=== PATIENT | male | born 1960 | race Caucasian/White ===

== ENCOUNTER → 2020-12-13 11:08 | Outpatient (CLI) | payer BC, SELFPAY ==
--- NOTE | ~2020-12-13 | XR_ITS ---
EXAMINATION: XR lumbar spine min 4V EXAM DATE: 12/13/2020 11:28 INDICATION: M54.42- Lumbago with sciatica, left side x3 months/no injury . TECHNIQUE: Lumber spine frontal, lateral, bilateral oblique projections. Coned down frontal and lat eral L5-S1 lumbar projections for interpretation. There is no prior study for comparison. FINDINGS: Moderate to severe disc disease L3-S1, moderate at L2-3. Small to moderate-sized endplate o steophytes. The vertebral body heights relatively well-maintained. The vertebral bodies are aligned i n the AP dimension. No spondylolysis. Mild lumbar levoscoliosis. Sacrum, sacroiliac joints, sacral ar reynaldo lines are intact. Paraspinal soft tissue is unremarkable. Moderate diffuse lumbar facet arthrop athy. IMPRESSION: 1. Mild lumbar levoscoliosis. 2. Moderate to severe disc disease L3-S1. 3. Moderate facet arthropathy. Reviewed, dictated and finalized at location B.
== END ==
PROVIDERS: PCP Family Medicine; Visit Provider Family Medicine
DX: M54.42 Lumbago with sciatica, left side (principal); M41.86 Other forms of scoliosis, lumbar region; M47.816 Spondylosis without myelopathy or radiculopathy, lumbar region
CPT/HCPCS: 72110

== ENCOUNTER 2020-12-13 12:31 | Outpatient (CLI) | payer BC, SELFPAY ==
--- NOTE | ~2020-12-13 | CT_ITS ---
EXAMINATION: CT abdomen pelvis wo con EXAM DATE: 12/13/2020 12:49 INDICATION: R31.29 - Other microscopic hematuria. Left flank pain. TECHNIQUE: Spiral CT of the abdomen and pelvis was performed without contrast. Axial, coronal and sag ittal images were reviewed. The dose-length product (DLP) for this examination was 1013.15 mGy-cm. The exposure was tailored according to patient size (auto mA exposure control), and iterative reconst ruction (ASIR) was used as additional dose reduction technique. There is no prior study for comparis on. FINDINGS: There is punctate 2 mm left inferior calyceal stone. No ureteral stones or hydronephrosis. The prostate is unremarkable. The bladder is unremarkable. Left adrenal hyperplasia. The liver, spl een, adrenal glands and pancreas are otherwise unremarkable. Gallbladder is unremarkable. No biliar y obstruction. There is no retroperitoneal or pelvic lymphadenopathy. The appendix is normal. There is mild to moderate sigmoid predominant colonic diverticulosis. There is no adjacent inflammatory change to suggest diverticulitis. The stomach and small bowel are unremar kable. There is expected amount of colonic stool. No free intraperitoneal gas. The heart is norm al in size. There are no pericardial or pleural effusions. The lung bases are unremarkable. There are no osteoblastic or osteolytic lesions identified. Moderate lumbar spondylosis. IMPRESSION: 1. Punctate left nephrolithiasis. 2. No acute lumbar findings. 3. Colonic diverticulosis. Reviewed, dictated and finalized at location B.
== END 2020-12-13 12:32 | disposition home or self-care (01) ==
LOC: ANHIMG 12:32
PROVIDERS: PCP Family Medicine; Visit Provider Family Medicine
DX: R31.29 Other microscopic hematuria (principal); M54.42 Lumbago with sciatica, left side; N20.0 Calculus of kidney; K57.90 Diverticulosis of intestine, part unspecified, without perforation or abscess without bleeding
CPT/HCPCS: 74176

== ENCOUNTER → 2022-01-25 11:37 | Outpatient (CLI) | payer BC, SELFPAY ==
--- NOTE | ~2022-01-25 | XR_ITS ---
EXAMINATION: XR hip LT min 3V w AP pelvis, XR lumbar spine min 4V DATE: 01/25/2022 12:14 INDICATION: Lumbago with left-sided sciatica. Left hip pain. TECHNIQUE: 1. Anteroposterior, lateral, left and right oblique and coned-down lateral lumbosacral views of the l umbar spine were obtained. 2. Anteroposterior view of the pelvis and anteroposterior, frog leg and cross-table lateral views of the left hip were obtained. COMPARISON: Lumbar spine radiographs and CT abdomen and pelvis dated 12/13/2020 FINDINGS: Lumbar spine: Alignment is normal. Vertebral body heights are normal. Moderate to severe disc height loss with vacu um phenomena at L3-L4, L4-L5 and L5-S1. Mild disc height loss at T10-T11 through L2-L3 relatively spa ring L1-L2. No pars interarticularis defects. Multilevel mild to moderate lumbar facet osteoarthritis . Pelvis and left hip: Alignment is normal. No fracture. No suspected avascular necrosis. Moderate to severe osteoarthritis at the left hip with severe joint space narrowing at the superior aspect of the joint space with suba rticular cystic change at the superior left acetabulum. Large loose osteochondral body along the ante rosuperior margin of the left femoral head neck. Mild osteoarthritis at the right hip. Bilateral decr eased femoral head/neck offset. Moderate bilateral sacroiliac osteoarthritis with partial ankylosis o f the right sacroiliac joint. Soft tissues are unremarkable. IMPRESSION: 1. Moderate to severe lumbar spondylosis. 2. Moderate to severe left hip and mild right hip osteoarthritis. 3. Moderate bilateral sacral erect osteoarthritis with partial ankylosis on the right. Reviewed, dictated and finalized at location B. IMPRESSION: 1. Moderate to severe lumbar spondylosis. 2. Moderate to severe left hip and mild right hip osteoarthritis. 3. Moderate bilateral sacral erect osteoarthritis with partial ankylosis on the right.
== END ==
PROVIDERS: PCP Family Medicine; Visit Provider Family Medicine
DX: M54.42 Lumbago with sciatica, left side (principal); G89.29 Other chronic pain; M47.896 Other spondylosis, lumbar region; M16.0 Bilateral primary osteoarthritis of hip; M53.3 Sacrococcygeal disorders, not elsewhere classified
CPT/HCPCS: 72110; 73502

== ENCOUNTER → 2022-02-09 13:33 | Outpatient (CLI) | payer BC, SELFPAY ==
--- NOTE | ~2022-02-09 | MR_ITS ---
EXAMINATION: MR lumbar spine wo con DATE: 02/09/2022 14:06 INDICATION: Low back pain. Left-sided lumbar radiculitis. TECHNIQUE: Magnetic resonance imaging (MRI) of the lumbar spine was performed without intravenous con trast. Sequences included sagittal T2-weighted FSE, sagittal T2-weighted FS FSE, sagittal T1-weighted FSE, and axial T2-weighted FSE. COMPARISON: Lumbar spine radiographs 01/25/2022 FINDINGS: There is 6 degrees levocurvature of lumbar spine. There is 3 mm retrolisthesis of L3 on L4 and L5 on S1. There is mild chronic anterior wedging of T11 and T12 vertebral bodies. There is mildly decreased disc height at L2-L3 and severely decreased disc height from L3-L4 through L5-S1 with endp late remodeling. The distal spinal cord signal intensity is normal. The conus medullaris is at T12-L1 . The following disc levels are specifically discussed: L1-L2: The disc does not extend beyond the endplate margin. There is mild bilateral facet joint osteo arthritis. There is no neural foraminal stenosis. There is no central canal stenosis. L2-L3: The disc is bulging and has an annular fissure. There is moderate bilateral facet joint osteoa rthritis. There is mild bilateral neural foraminal stenosis. There is mild central canal stenosis. L3-L4: The disc is bulging and has an annular fissure. There is moderate bilateral facet joint osteoa rthritis. There is moderate bilateral neural foraminal stenosis. There is mild central canal stenosis . L4-L5: The disc is bulging and has an annular fissure. There is moderate bilateral facet joint osteoa rthritis. There is moderate bilateral neural foraminal stenosis. There is mild central canal stenosis . L5-S1: The disc is bulging and has an annular fissure. There is moderate bilateral facet joint osteoa rthritis. There is moderate bilateral neural foraminal stenosis. There is mild central canal stenosis . IMPRESSION: 1. Severe lumbar spondylosis. Reviewed, dictated and finalized at location A.
== END ==
PROVIDERS: PCP Family Medicine; Visit Provider Family Medicine
DX: M47.26 Other spondylosis with radiculopathy, lumbar region (principal)
CPT/HCPCS: 72148

== ENCOUNTER 2022-02-20 07:31 | Outpatient (RCR) | payer BC, SELFPAY ==
--- NOTE | 2022-02-20 07:59 | PTOPEVAL1 ---
Assessment and note entered by [employer]T [employer], PT Evaluation Information Assessment Status Evaluation Diagnosis L hip pain Onset 02/13/22 Subjective Information patient reports he is having pain in the groin of the L hip. he reports he has had an xray of the L hip and reports he has bone spurs and arthritis. he reports he is taking a mm realxor for the pain. he reports he has had no injection. he reports he has increased pain with increased time and activities standing. he reports he always has pain , but reports at times he will do too much and it will be sharp. he reports the pain at rest is a deep and dull pain. he reports he has been dealing with pain and symptoms for atleast 1 year or more. Reported Pain Level Pain Score 7: Self Report Assessment PT Clinical Summary mr. rubalcava presents to skilled PT services for evaluation and treatment of L hip pain. he presents this date with signs and symptoms consistent with L hip OA. his OA is accompanied by L hip weakness, mm tightness, decreased rom, pain , abnormal gait mechanics, and decreased quality of life. he would do well to attend and participate in skilled PT services to improve his objective/funcitonal deficits and progress towards a return to his prior level activity performance/ endurance and improve his quality of life. Plan of Care Interventions Electrical Stimulation,Gait Training,Hot Pack/Cold Pack,Manual Therapy,Neuro Re-education,Patient/ Caregiver Educati,Therapeutic Activities, Therapeutic Exercise PT Services Indicated Yes Treatment Frequency and 2x weekly for 8 visits Duration These treatments will address the objective and functional deficits as defined above. The patient will be advanced safely and appropriately in order for the patient to progress towards his/her prior level of function. Additional exercises will be introduced and as well as a comprehensive home exercise program upon discharge, if needed, ?to ensure carryover of functional gains achieved in the clinic. This treatment plan has been reviewed and agreement upon by the patient.
== END 2022-03-21 10:51 | disposition home or self-care (01) ==
LOC: CHSPT 07:31
PROVIDERS: Visit Provider Nurse Practitioner
DX: M25.552 Pain in left hip (principal); G89.29 Other chronic pain
CPT/HCPCS: 97014; 97110; 97112; 97140; 97161; G0283

== ENCOUNTER 2022-04-23 13:04 | Outpatient (CLI) | payer BC, SELFPAY ==
--- NOTE | ~2022-04-23 | XR_ITS ---
EXAMINATION: XR lg joint inject/asp w image DATE: 04/23/2022 13:49 INDICATION: Chronic left hip pain. TECHNIQUE: A time-out was performed to verify the patient's name, date of , and procedure to b e performed. The procedure including the risks, benefits, and alternatives was discussed with the pat ient. Risks discussed included bleeding and infection. The patient understood the risks and agreed to proceed. The skin overlying the left hip joint was prepped and draped in usual sterile fashion. An esthetic was administered with 1% lidocaine subcutaneously. A 22 G needle was advanced under fluoros copic guidance into the joint. Subsequently, injectate consisting of 5 mL 1% lidocaine and 2 mL 10 m g/mL Kenalog was instilled. The needle was removed and the entry site was cleaned and dressed. Ther e were no immediate complications. Fluoroscopy exposure time was 0.1 minutes. The total number of janel ges was 1. FINDINGS: Real-time fluoroscopy demonstrates the needle in the left hip joint. IMPRESSION: 1. Fluoroscopy guided left hip joint injection of local anesthetic and steroid. Reviewed, dictated and finalized at location A. 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
== END 2022-04-23 13:05 | disposition home or self-care (01) ==
PROVIDERS: PCP Family Medicine; Visit Provider Nurse Practitioner
DX: M25.552 Pain in left hip (principal); G89.29 Other chronic pain
CPT/HCPCS: 20610; 77002; J3301

== ENCOUNTER 2022-11-07 01:35 | Day surgery (SDC) | payer BC, SELFPAY ==
[2022-10-25 15:01] VITALS: BMI 37.6
--- NOTE | 2022-11-06 20:21 | PM.HPGS ---
History of Present Illness History of Present Illness Consent: Risks, benefits, and alternatives have been discussed and questions answered. Patient agrees to proceed with procedure. Chief complaint: neoplasm screening Narrative: Pawel Hogan Jr. is a 62 year old male EGD with possible biopsy or dilatation or cautery. Review of Systems Review of Systems: All systems reviewed & are unremarkable except as noted in HPI and below PMFSH Past Medical History Medical History Actinic keratosis (~2021) left external ear Acute bilateral low back pain with left-sided sciatica (~09/06/20) X-ray on 12/13/2020 reveals mild levoscoliosis, moderate to severe degenerative disc disease from L3-S1 and moderate facet arthropathy throughout with moderate degenerative disc disease at L2-L3. Moderate to severe lumbar spondylosis on x-ray 01/25/2022.MRI of the lumbar spine on 02/09/2022 reveals severe lumbar spondylosis. Adult BMI 40.0-44.9 kg/sq m BMI 45.0-49.9, adult Chronic anxiety Chronic depression Chronic left hip pain (~12/2021) Moderate to severe osteoarthritis of the left hip and mild arthritis of the right hip on x-rays 01/25/2022. Colon cancer screening COVID-19 (02/11/21) tested positive on 02/13/2021 Dizziness Dyspnea on exertion Dysuria Elevated fasting glucose fasting glucose 94 and hemoglobin A1c 5.5 on 06/27/2021. fasting glucose 96 on 01/16/2022. Fasting glucose 95 with hemoglobin A1c 5.5 on 08/15/2022. Elevated ferritin (08/15/22) iron 80 with 25% saturation and ferritin elevated at 439 on 08/15/2022. Elevated liver enzymes AST 18 and ALT 31 on 06/27/2021. Liver enzymes normal on 08/15/2022 with GGT 15, AST 18, ALT 22. Elevated PSA, less than 10 ng/ml (08/15/22) PSA elevated at 4.75 on 08/15/2022. Encounter for prostate cancer screening PSA normal at 3.67 on 4 06/27/2021.PSA elevated at 4.75 on 08/15/2022. Essential (primary) hypertension Fatigue Ganglion cyst of right foot Gastro-esophageal reflux disease without esophagitis Hypertension Low TSH level (08/15/22) TSH slightly low at 0.25 on 08/15/2022. Microscopic hematuria urinalysis normal on 06/27/2021. Urinalysis normal on 08/15/2022. Mixed hyperlipidemia (06/27/21) total cholesterol 165 with triglycerides elevated at 204 and HDL low at 31 with LDL 102 on 06/27/2021. Total cholesterol 133, triglycerides 144, HDL 30, LDL 79 on 01/16/2022. Cholesterol 149, HDL 30, triglycerides 132, LDL 96 on 08/15/2022. Morbid obesity with BMI of 40.0-44.9, adult Obstructive sleep apnea on CPAP Seasonal allergic rhinitis Trigger thumb of left hand Vitamin B12 deficiency (08/15/22) vitamin B12 low at 336 with goal greater than 400 with hemoglobin 15.7 and folic acid 15.5 on 08/15/2022. Surgical History Surgical History History of carpal tunnel release of both wrists Hx of LASIK Family History Family History Other Adopted Social History Social History Smoking status: Never smoker Alcohol intake: never Substance use: never Substance use type: does not use Lack of Transportation: No Lack of Food: Never True Current Housing: I Have Housing Concerned About Future Housing: No Difficulty Paying Gas/Electric Bills: No Difficulty Paying for Meds: No Currently Unemployed: No Education: Master's Degree or Higher Difficulty w/ Childcare or Family Care: No Living arrangements: with family Occupation/Education: occupation 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
[2022-11-07 11:11] VITALS: BP 133/81; PULSE 77; RESP 18; TEMP 36.2; O2SAT 98
[2022-11-07] MEDS: LACTATED RINGERS 1,000 ML 150 ML IV CONT (11:20)
--- NOTE | 2022-11-07 12:36 | WPDANESEPPF ---
Anes - Initial Pre Proc Eval Procedure: Operation Date: 11/07/22 12:30 Proposed Procedures p Screening Colonoscopy - Rogelio Lozano MD Date/Time: 11/07/22 12:36 Surgeon: Rogelio Lozano MD Pre Op Diagnosis: neoplasm screening Patient Data Age: 62 Gender: M Height: 1.7 m Weight: 107.8 kg Last Vital Signs Temp 97.1 F L 11/07/22 11:11 Pulse 77 11/07/22 11:11 Resp 18 11/07/22 11:11 BP 133/81 11/07/22 11:11 Pulse Ox 98 11/07/22 11:11 O2 Del Method Room Air 11/07/22 11:11 Allergies Allergy/AdvReac Type Severity Reaction Status Date / Time No Known Allergies Allergy Verified 11/07/22 11:11 Home Medications Medication Instructions Recorded Confirmed Type calcium polycarbophil 625 mg 1,250 mg PO DAILY 02/24/19 10/25/22 History tablet (FiberCon) lisinopril 40 mg tablet 40 mg PO DAILY #90 tabs 05/31/22 10/25/22 Rx meloxicam 15 mg tablet 15 mg PO DAILY PRN pain #90 tabs 05/31/22 10/25/22 Rx omeprazole 20 mg capsule,delayed 20 mg PO DAILY #90 caps 05/31/22 10/25/22 Rx release cyanocobalamin (vitamin B-12) 1,000 mcg PO DAILY 08/16/22 10/25/22 History 1,000 mcg tablet duloxetine 60 mg capsule,delayed 60 mg PO DAILY #90 caps 09/04/22 10/25/22 Rx release Patient hx anesthesia problems: none Family hx anesthesia problems: none Results Review: All pre-operative results and documents have been reviewed as part of the pre-operative evaluation. FORMERLY [facility], [facility] Past Medical History Medical History Actinic keratosis (~2021) left external ear Acute bilateral low back pain with left-sided sciatica (~09/06/20) X-ray on 12/13/2020 reveals mild levoscoliosis, moderate to severe degenerative disc disease from L3-S1 and moderate facet arthropathy throughout with moderate degenerative disc disease at L2-L3. Moderate to severe lumbar spondylosis on x-ray 01/25/2022.MRI of the lumbar spine on 02/09/2022 reveals severe lumbar spondylosis. Adult BMI 40.0-44.9 kg/sq m BMI 45.0-49.9, adult Chronic anxiety Chronic depression Chronic left hip pain (~12/2021) Moderate to severe osteoarthritis of the left hip and mild arthritis of the right hip on x-rays 01/25/2022. Colon cancer screening COVID-19 (02/11/21) tested positive on 02/13/2021 Dizziness Dyspnea on exertion Dysuria Elevated fasting glucose fasting glucose 94 and hemoglobin A1c 5.5 on 06/27/2021. fasting glucose 96 on 01/16/2022. Fasting glucose 95 with hemoglobin A1c 5.5 on 08/15/2022. Elevated ferritin (08/15/22) iron 80 with 25% saturation and ferritin elevated at 439 on 08/15/2022. Elevated liver enzymes AST 18 and ALT 31 on 06/27/2021. Liver enzymes normal on 08/15/2022 with GGT 15, AST 18, ALT 22. Elevated PSA, less than 10 ng/ml (08/15/22) PSA elevated at 4.75 on 08/15/2022. Encounter for prostate cancer screening PSA normal at 3.67 on 4 06/27/2021.PSA elevated at 4.75 on 08/15/2022. Essential (primary) hypertension Fatigue Ganglion cyst of right foot Gastro-esophageal reflux disease without esophagitis Hypertension Low TSH level (08/15/22) TSH slightly low at 0.25 on 08/15/2022. Microscopic hematuria urinalysis normal on 06/27/2021. Urinalysis normal on 08/15/2022. Mixed hyperlipidemia (06/27/21) total cholesterol 165 with triglycerides elevated at 204 and HDL low at 31 with LDL 102 on 06/27/2021. Total cholesterol 133, triglycerides 144, HDL 30, LDL 79 on 01/16/2022. Cholesterol 149, HDL 30, triglycerides 132, LDL 96 on 08/15/2022. Morbid obesity with BMI of 40.0-44.9, adult Obstructive sleep apnea on CPAP Seasonal allergic rhinitis Trigger thumb of left hand Vitamin B12 deficiency (08/15/22) vitamin B12 low at 336 with goal greater than 400 with hemoglobin 15.7 and folic acid 15.5 on 08/15/2022. Surgical History Surgical History History of carpal tunnel release of both wrists Hx of LASIK Family Histo
[2022-11-07 12:57] VITALS: BP 122/77; PULSE 72; RESP 18; O2SAT 95
[2022-11-07 13:07] VITALS: BP 120/84; PULSE 74; RESP 18; O2SAT 98
[2022-11-07 13:17] VITALS: BP 120/89; PULSE 68; RESP 18; O2SAT 98
== END 2022-11-07 13:30 | disposition home or self-care (01) ==
PROVIDERS: PCP Family Medicine; Visit Provider Internal Medicine Gastroenterology
PROC: 0DJD8ZZ Inspection of Lower Intestinal Tract, Via Natural or Artificial Opening Endoscopic (ICD-10-PCS; CPT 45378; principal; 2022-11-07 12:30)
DX: Z12.11 Encounter for screening for malignant neoplasm of colon (principal); K57.30 Diverticulosis of large intestine without perforation or abscess without bleeding; I10 Essential (primary) hypertension; F41.9 Anxiety disorder, unspecified; F32.A Depression, unspecified; K21.9 Gastro-esophageal reflux disease without esophagitis; E78.2 Mixed hyperlipidemia; G47.33 Obstructive sleep apnea (adult) (pediatric); E66.9 Obesity, unspecified; Z68.37 Body mass index [BMI] 37.0-37.9, adult
CPT/HCPCS: 45378; J2704; J7120

== ENCOUNTER 2023-01-28 13:52 | Outpatient (CLI) | payer BC, SELFPAY ==
--- NOTE | 2023-01-28 14:41 | ECG_ITS ---
Measurements Intervals [place] Rate: 90 P: 31 AL: 191 QRS: 64 QRSD: 98 T: 28 QT: 314 QTc: 384 Interpretive Statements SINUS RHYTHM LOW QRS VOLTAGE IN PRECORDIAL LEADS [QRS DEFLECTION < 1.0 mV IN CHEST LEADS] PATTERN CONSISTENT WITH PULMONARY DISEASE POSSIBLE INFERIOR MYOCARDIAL INFARCTION [30 ms Q WAVE IN II/aVF], OF INDETERMINATE AGE ABNORMAL ECG NO PREVIOUS ECG AVAILABLE FOR COMPARISON Electronically Signed On 01-28-2023 17:13:29 CDT by Obed Grace M.D.
[2023-01-28 15:15] LABS: Anion Gap 12 mmol/L (8-16); Blood Urea Nitrogen 14 mg/dL (9-20); Calcium 9.2 mg/dL (8.4-10.2); Carbon Dioxide 25 mmol/L (22-30); Chloride 95 mmol/L (98-107); Estimated Glomerular Filt Rate > 60; Glucose 86 mg/dL (65-110); Potassium 4.2 mmol/L (3.4-5.0); Sodium 132 mmol/L (137-145)
[2023-01-28 15:19] LABS: Basophils Percent Auto 0.6 % (0.2-1.2); Eosinophils Absolute Auto 0.3 K/mm3 (0-0.3); Eosinophils Percent Auto 4.7 % (0-4.4); Hematocrit 50.1 % (42.0-52.0); Hemoglobin 16.7 g/dL (14.0-18.0); Immature Granulocyte Absolute 0.02 K/mm3 (0.00-0.031); Immature Granulocyte Percent A 0.3 % (0-0.5); Lymphocytes Percent Auto 5.6 % (18.3-44.2); Mean Corpuscular HGB Conc 33.3 g/dl (32-36); Mean Corpuscular Hemoglobin 29.5 pg (26-34); Mean Corpuscular Volume 88.5 fl (80-100); Mean Platelet Volume 9.7 fl (7.4-10.4); Monocytes Absolute Auto 0.9 K/mm3 (0.1-0.6); Monocytes Percent Auto 12.5 % (2.6-8.5); Neutrophils Absolute Auto 5.5 K/mm3 (1.3-6.7); Neutrophils Percent Auto 76.3 % (45.5-73.1); Platelet Count Result 216 k/mm3 (150-375); Red Blood Count 5.66 M/mm3 (4.6-6.20); Red Cell Distribution Width 12.8 % (11.5-14.5); White Blood Count 7.2 K/mm3 (4.5-10.0)
[2023-01-28 17:10] LABS: Urine Cotinine NEGATIVE
[2023-01-28 17:53] LABS: Hemoglobin A1C 5.3 % (<5.7)
== END 2023-01-28 13:53 | disposition home or self-care (01) ==
LOC: ANHSURGERY 13:55
PROVIDERS: PCP Family Medicine; Visit Provider Orthopaedic Surgery
DX: M16.12 Unilateral primary osteoarthritis, left hip (principal); Z01.818 Encounter for other preprocedural examination
CPT/HCPCS: 80048; 80307; 82040; 83036; 85025; 87081; 93005

== ENCOUNTER 2023-01-29 12:00 | Emergency (ER) | payer BC, SELFPAY ==
--- NOTE | ~2023-01-29 | CT_ITS ---
EXAMINATION: CT abdomen pelvis wo con DATE: 01/29/2023 13:35 INDICATION: Left flank pain TECHNIQUE: Computed tomography (CT) of the abdomen and pelvis was performed without intravenous contr ast. Automated exposure control and iterative reconstruction technique were employed. The dose-length product was 1603.87 mGy-cm. COMPARISON: 12/13/20 FINDINGS: Lung bases are clear. Heart size is normal. Atherosclerotic coronary artery calcific location. No per icardial or pleural effusion. Liver, gallbladder, spleen, pancreas, bilateral adrenal glands are norm al. 3 mm nonobstructing stone at a lower pole calyx of the left kidney. No other urolithiasis in eith er kidney or along the course of the normal ureters. No hydroureteronephrosis. Mild scattered colonic diverticulosis without adjacent comparison to suggest diverticulitis. Small bowel and appendix are n ormal. Bladder is normal. Small bilateral fat-containing inguinal hernias. No free intraperitoneal ga s or fluid. No pathologically enlarged abdominal or pelvic lymphadenopathy. Moderate lower thoracic a nd moderate to severe lumbar spondylosis. IMPRESSION: 1. 3 mm nonobstructing left renal stone. Reviewed, dictated and finalized at location A.
[2023-01-29 12:07] VITALS: BP 125/95; PULSE 92; RESP 14; TEMP 36.4; O2SAT 98
--- NOTE | 2023-01-29 12:52 | ED.MALEGU ---
HPI - Male Genitourinary General Chief complaint: Urogenital-Male Stated complaint: Trouble voiding Time Seen by Provider: 01/29/23 12:40 Source: patient and family Mode of arrival: ambulatory Limitations: no limitations History of Present Illness HPI Narrative: 62 years old white male complaining of urine frequency, burning send urination, 500 for the last 4 to 6 months, got worse over the last few days, was seen by his family physician 5 days ago and was started on Bactrim without any improvement, urine analysis showed no infection at that time. Currently his main complaint is nausea. Patient report lethargy and tiredness and general body aches, tested negative for COVID at home. History of hypertension, currently on meloxicam for hip pain. Related Data Home Medications Medication Instructions Recorded Confirmed calcium polycarbophil 625 mg 1,250 mg PO DAILY 02/24/19 01/28/23 tablet (FiberCon) cyanocobalamin (vitamin B-12) 1,000 mcg PO DAILY 08/16/22 01/28/23 1,000 mcg tablet zinc 10 mg tablet 10 mg PO DAILY 01/28/23 01/28/23 Allergies Allergy/AdvReac Type Severity Reaction Status Date / Time No Known Allergies Allergy Verified 01/29/23 12:11 Review of Systems Review of Systems: All systems reviewed & are unremarkable except as noted in HPI and below PMFSH Past Medical History Medical History Actinic keratosis (~2021) left external ear Acute bilateral low back pain with left-sided sciatica (~09/06/20) X-ray on 12/13/2020 reveals mild levoscoliosis, moderate to severe degenerative disc disease from L3-S1 and moderate facet arthropathy throughout with moderate degenerative disc disease at L2-L3. Moderate to severe lumbar spondylosis on x-ray 01/25/2022.MRI of the lumbar spine on 02/09/2022 reveals severe lumbar spondylosis. Adult BMI 40.0-44.9 kg/sq m BMI 37.0-37.9, adult BMI 45.0-49.9, adult Chronic anxiety Chronic depression Chronic left hip pain (~12/2021) Moderate to severe osteoarthritis of the left hip and mild arthritis of the right hip on x-rays 01/25/2022. Colon cancer screening Normal colonoscopy 11/07/2022 with diverticulosis with recheck in 10 years. COVID-19 (02/11/21) tested positive on 02/13/2021 Dizziness Dyspnea on exertion Dysuria Elevated fasting glucose fasting glucose 94 and hemoglobin A1c 5.5 on 06/27/2021. fasting glucose 96 on 01/16/2022. Fasting glucose 95 with hemoglobin A1c 5.5 on 08/15/2022. Elevated ferritin (08/15/22) iron 80 with 25% saturation and ferritin elevated at 439 on 08/15/2022. Elevated liver enzymes AST 18 and ALT 31 on 06/27/2021. Liver enzymes normal on 08/15/2022 with GGT 15, AST 18, ALT 22. Elevated PSA, less than 10 ng/ml (08/15/22) PSA elevated at 4.75 on 08/15/2022. Encounter for prostate cancer screening PSA normal at 3.67 on 4 06/27/2021.PSA elevated at 4.75 on 08/15/2022. Essential (primary) hypertension Fatigue Ganglion cyst of right foot Gastro-esophageal reflux disease without esophagitis Hypertension Low TSH level (08/15/22) TSH slightly low at 0.25 on 08/15/2022. Microscopic hematuria urinalysis normal on 06/27/2021. Urinalysis normal on 08/15/2022. Urinalysis is normal on 01/24/2023. Mixed hyperlipidemia (06/27/21) total cholesterol 165 with triglycerides elevated at 204 and HDL low at 31 with LDL 102 on 06/27/2021. Total cholesterol 133, triglycerides 144, HDL 30, LDL 79 on 01/16/2022. Cholesterol 149, HDL 30, triglycerides 132, LDL 96 on 08/15/2022. Morbid obesity with BMI of 40.0-44.9, adult Obesity (BMI 30-39.9) Obstructive sleep apnea on CPAP Pre-operative clearance EKG 01/28/2023 with sinus rhythm with Q-wave AVF with possible inferior MS but unchanged from EKG On 05/14/2015. Primary osteoarthritis of left hip Seasonal allergic rhinitis Trigger thumb of left hand UTI (urinary tract infection) Urinalysis and urine culture were completely normal 01/24/2023. Vitamin B12 defici
[2023-01-29 13:10] LABS: Basophils Percent Auto 0.3 % (0.2-1.2); Eosinophils Absolute Auto 0.3 K/mm3 (0-0.3); Eosinophils Percent Auto 7.7 % (0-4.4); Hematocrit 45.6 % (42.0-52.0); Hemoglobin 15.4 g/dL (14.0-18.0); Immature Granulocyte Absolute 0.02 K/mm3 (0.00-0.031); Immature Granulocyte Percent A 0.5 % (0-0.5); Lymphocytes Absolute Auto 0.38 K/mm3 (0.9-3.2); Lymphocytes Percent Auto 9.8 % (18.3-44.2); Mean Corpuscular HGB Conc 33.8 g/dl (32-36); Mean Corpuscular Hemoglobin 29.4 pg (26-34); Mean Corpuscular Volume 87.2 fl (80-100); Mean Platelet Volume 9.3 fl (7.4-10.4); Monocytes Absolute Auto 0.7 K/mm3 (0.1-0.6); Monocytes Percent Auto 18.6 % (2.6-8.5); Neutrophils Absolute Auto 2.5 K/mm3 (1.3-6.7); Neutrophils Percent Auto 63.1 % (45.5-73.1); Platelet Count Result 170 k/mm3 (150-375); Red Blood Count 5.23 M/mm3 (4.6-6.20); Red Cell Distribution Width 12.7 % (11.5-14.5); White Blood Count 3.9 K/mm3 (4.5-10.0)
[2023-01-29 13:23] LABS: Alanine Aminotransferase 23 U/L (6-50); Albumin Level 4.5 g/dL (3.5-5.1); Alkaline Phosphatase 77 U/L (38-126); Anion Gap 8 mmol/L (8-16); Aspartate Amino Transferase 22 U/L (17-59); Bilirubin,Total 0.4 mg/dL (0.2-1.3); Blood Urea Nitrogen 12 mg/dL (9-20); Carbon Dioxide 26 mmol/L (22-30); Chloride 96 mmol/L (98-107); Estimated CRCL calculation 99 ml/min; Estimated Glomerular Filt Rate > 60; Glucose 91 mg/dL (65-110); Potassium 4.4 mmol/L (3.4-5.0); Sodium 130 mmol/L (137-145)
[2023-01-29 13:27] LABS: Appearance Urine Clear (Clear); Bilirubin Urine Negative (Negative); Color Urine Yellow (Yellow); Glucose Urine UA Negative (Negative); Ketones Urine Negative (Negative); Leukocyte Esterase Ur Negative LEU/UL (Negative); Nitrate Urine Negative (Negative); Protein Urine Negative (Negative); Urobilinogen Urine 0.2 mg/dL (<2.0)
[2023-01-29 14:25] LABS: Influenza A QL RT-PCR Negative (Negative); Influenza B QL RT-PCR Negative (Negative); RSV RNA, RT-PCR Negative (Negative); SARS-CoV-2 RNA PCR Negative (Negative)
[2023-01-29 14:29] LABS: Add Urine Microscopic? YES
[2023-01-29 14:55] VITALS: BP 178/89; PULSE 89; RESP 18; TEMP 37.7; O2SAT 100
== END 2023-01-29 15:12 | disposition home or self-care (01) ==
PROVIDERS: Emergency Medicine; Emergency Provider Emergency Medicine; PCP Family Medicine
DX: R30.0 Dysuria (principal); Z20.822 Contact with and (suspected) exposure to COVID-19; I10 Essential (primary) hypertension; E78.2 Mixed hyperlipidemia; E53.8 Deficiency of other specified B group vitamins; E66.01 Morbid (severe) obesity due to excess calories; Z68.37 Body mass index [BMI] 37.0-37.9, adult; M16.0 Bilateral primary osteoarthritis of hip; G47.33 Obstructive sleep apnea (adult) (pediatric); K21.9 Gastro-esophageal reflux disease without esophagitis; Z86.16 Personal history of COVID-19; Z87.440 Personal history of urinary (tract) infections; N20.0 Calculus of kidney
CPT/HCPCS: 36415; 74176; 80053; 81001; 85025; 87086; 87637; 99284

== ENCOUNTER 2023-02-20 03:23 | Day surgery (SDC) | payer BC, SELFPAY ==
[2023-01-28 14:00] VITALS: BMI 37.7
--- NOTE | 2023-01-28 14:23 | PC.NURSE ---
Report to the Outpatient Waiting Room, entrance under the green pavilion located off [facility], at time _0600 on date _02/20/23 . Planned Procedure Time: __0730 . Time changes happen often and if your time is changed the preop area will call you the afternoon before. - You and your visitor will be asked to self-screen and do not enter if you have any COVID symptoms. - A mask is optional within the hospital at this time. Patients may have clear liquids (water, carbonated beverages, clear teas, apple juice) until 3 hours prior to surgery with a maximum of 20 ounces. - No food from midnight until time of surgery - Infants may have breast milk until 4 hours before surgery, infant formula 6 hours prior to surgery. - Children will be allowed to drink immediately following surgery. If applicable, please bring a bottle or sippy cup to assist with drinking. Juice, water, soda, and popsicles are readily available. For infants on formula, please bring formula the day of surgery. Pacifiers are allowed. Take the following medications with a SIP of water the morning of surgery: ____DULOXETINE DO NOT STOP ANY OF YOUR OTHER PRESCRIPTION MEDICATIONS PRIOR TO SURGERY ?EXCEPT THE FOLLOWING Medications to discontinue per physician __PT STATES_MELOXICAM HOLD 7 DAYS PRE OP PER DR BURGESS.LAST DOSE 02/12/23 AND ALL VITAMINS AND SUPPLEMENTS 7 DAYS PRE OP Please no make-up, nail egyptian, hairspray, perfume, deodorant, or body powder the day of surgery. No jewelry (including any body piercings) or valuables the day of surgery, leave them at home. Please take a shower or bath the night before, or the morning of, surgery with an antibacterial soap. Wear comfortable, loose fitting clothing. Children are encouraged to wear pajamas. - Jewelry must be removed prior to entering the operating room. Rings and piercings that are not removed may be cut off. - The hospital will not accept responsibility for valuables. - Please leave all valuables, including medications, at home the day of surgery. If you are going home after surgery, a licensed driver starting gate must drive you home. - NO public transportation without another adult if you receive anesthesia. - We recommend that an adult stay with you for 24 hours following discharge. - We also recommend that you do not drive, make important decision, drink alcoholic beverages, or take any drugs that were not prescribed by your health care provider for at least 24 hours after your discharge time. For Pediatric surgeries, we recommend two adults accompany the child home. Follow any additional instructions given to you from your surgeon. If you or anyone in your household have experienced Covid symptoms in the past week, please notify your surgeon or the nurse liaison at the phone number below for possible testing. VERBAL AND WRITTEN instructions given to __PATIENT AND GEOFFREY and asked if any additional questions and then verbalized understanding. Patient advised to call surgeon office or pre surgery nurse liaison [phone] if any additional questions.
[2023-01-28 14:43] VITALS: BP 121/69; PULSE 92; RESP 18; TEMP 37; O2SAT 99
--- NOTE | 2023-02-15 07:54 | PM.IMHP ---
H&P: [facility] History of Present Illness Date/Time: 02/15/23 07:54 Chief Complaint: DJD left hip Narrative: 62-year-old male patient of Dr. Mcfarland who presents today for a left anterior total hip arthroplasty. Patient has been having pain in the hip for over a year and half. He has been taking meloxicam 15 mg daily without improvement his symptoms. Patient has advanced osteoarthritis the left hip. He is having pain on a daily basis which is limiting his daily activities. At this point he would like to proceed with total hip arthroplasty rather than continue nonsurgical treatment Review of Systems Review of Systems: All systems reviewed & are unremarkable except as noted in HPI and below PMFSH Past Medical History Medical History (Updated 02/15/23 @ 07:58 by ANNY Alcantar) Actinic keratosis (~2021) left external ear Acute bilateral low back pain with left-sided sciatica (~09/06/20) X-ray on 12/13/2020 reveals mild levoscoliosis, moderate to severe degenerative disc disease from L3-S1 and moderate facet arthropathy throughout with moderate degenerative disc disease at L2-L3. Moderate to severe lumbar spondylosis on x-ray 01/25/2022.MRI of the lumbar spine on 02/09/2022 reveals severe lumbar spondylosis. Adult BMI 40.0-44.9 kg/sq m BMI 37.0-37.9, adult BMI 45.0-49.9, adult BPH without obstruction/lower urinary tract symptoms Chronic anxiety Chronic depression Chronic left hip pain (~12/2021) Moderate to severe osteoarthritis of the left hip and mild arthritis of the right hip on x-rays 01/25/2022. Colon cancer screening Normal colonoscopy 11/07/2022 with diverticulosis with recheck in 10 years. COVID-19 (02/11/21) tested positive on 02/13/2021 Dizziness Dyspnea on exertion Dysuria Elevated fasting glucose fasting glucose 94 and hemoglobin A1c 5.5 on 06/27/2021. fasting glucose 96 on 01/16/2022. Fasting glucose 95 with hemoglobin A1c 5.5 on 08/15/2022. Elevated ferritin (08/15/22) iron 80 with 25% saturation and ferritin elevated at 439 on 08/15/2022. Iron 79 with 25% saturation and ferritin elevated at 563 on 02/05/2023. Elevated liver enzymes AST 18 and ALT 31 on 06/27/2021. Liver enzymes normal on 08/15/2022 with GGT 15, AST 18, ALT 22. Elevated PSA, less than 10 ng/ml (08/15/22) PSA elevated at 4.75 on 08/15/2022. PSA elevated at 5.0 with 12% free PSA on 02/05/2023. Encounter for prostate cancer screening PSA normal at 3.67 on 4 06/27/2021.PSA elevated at 4.75 on 08/15/2022. Essential (primary) hypertension Fatigue Ganglion cyst of right foot Gastro-esophageal reflux disease without esophagitis Hypertension Low TSH level (08/15/22) TSH slightly low at 0.25 on 08/15/2022. TSH normal at 0.62 with free T4 1.1 and T3 total at 160. Microscopic hematuria urinalysis normal on 06/27/2021. Urinalysis normal on 08/15/2022. Urinalysis is normal on 01/24/2023. Mixed hyperlipidemia (06/27/21) total cholesterol 165 with triglycerides elevated at 204 and HDL low at 31 with LDL 102 on 06/27/2021. Total cholesterol 133, triglycerides 144, HDL 30, LDL 79 on 01/16/2022. Cholesterol 149, HDL 30, triglycerides 132, LDL 96 on 08/15/2022. Morbid obesity with BMI of 40.0-44.9, adult Obesity (BMI 30-39.9) Obstructive sleep apnea on CPAP Pre-operative clearance EKG 01/28/2023 with sinus rhythm with Q-wave AVF with possible inferior DC but unchanged from EKG On 05/14/2015. Primary osteoarthritis of left hip Seasonal allergic rhinitis Trigger thumb of left hand UTI (urinary tract infection) Urinalysis and urine culture were completely normal 01/24/2023. Vitamin B12 deficiency (08/15/22) vitamin B12 low at 336 with goal greater than 400 with hemoglobin 15.7 and folic acid 15.5 on 08/15/2022. level normal at 1056 on 02/05/2023. Surgical History Surgical History History of carpal tunnel release of both wrists Hx of LASIK Family History Family History (Reviewed 01/29/23 @
[2023-02-20] VITALS (15 sets, daily range): BP systolic 119–166; BP diastolic 70–97; PULSE 79–91; RESP 18–20; TEMP 36–37.3; O2SAT 94–100
--- NOTE | ~2023-02-20 | XR_ITS ---
EXAMINATION: XR surgery orthopedic DATE: 02/20/2023 12:18 INDICATION: Intraoperative evaluation during left total hip arthroplasty TECHNIQUE: Single fluoroscopic image of the left hip was obtained during orthopedic procedure perform ed by Dr. Santana. Radiologist was not present for the procedure or imaging. The amount of fluoroscop y time used during this procedure was 0.8 minutes. COMPARISON: Left hip radiographs dated 01/25/2022 FINDINGS: Intraoperative image during a left total hip arthroplasty demonstrate placement of a noncemented left total hip arthroplasty in near-anatomic alignment on the single image provided. The acetabula compon ent is affixed with at least a single screw. No fractures in the visualized bones. IMPRESSION: 1. Expected appearance during left total hip arthroplasty. Reviewed, dictated and finalized at location A. DEVELOPER
--- NOTE | ~2023-02-20 | XR_ITS ---
EXAMINATION: XR hip LT 1V w AP pelvis DATE: 02/20/2023 12:18 INDICATION: Postoperative evaluation following left total hip arthroplasty TECHNIQUE: Anteroposterior and crosstable lateral views of the left hip were obtained. COMPARISON: Left hip radiographs dated 01/25/2022 FINDINGS: Interval placement of a noncemented left total hip arthroplasty which appears well seated in near mani tomic alignment.Acetabular component is affixed with a single screw. Surgical drain and minimal expec sadi soft tissue gas in the postoperative bed. No fractures identified. IMPRESSION: 1. Left total hip arthroplasty, negative for postoperative purposes. Reviewed, dictated and finalized at location A. RTAKER HELPER
[2023-02-20] MEDS: TRANEXAMIC ACID 1,000MG/ISO100 1,000 MG/100 ML BAG 200 MG IVPB (06:52)
[2023-02-20] MEDS: LACTATED RINGERS 1,000 ML 30 ML IV CONT ×2 (06:52→12:02)
[2023-02-20] MEDS: ACETAMINOPHEN 500 MG TABLET 1000 MG PO ×3 (06:53→20:52)
--- NOTE | 2023-02-20 07:08 | WPDHPUPDATE1 ---
History and Physical Update Update Date/Time: 02/20/23 07:08 History and Physical has been reviewed, including an updated exam of the patient. There are NO changes in the patient's condition. Risks, benefits, and alternatives have been discussed and questions answered. Patient agrees to proceed with procedure.
--- NOTE | 2023-02-20 07:17 | WPDANESEPPF ---
Anes - Initial Pre Proc Eval Procedure: Operation Date: 02/20/23 07:30 Proposed Procedures p Left Total Hip Arthroplasty, Anterior Approach - Rob Santana MD Date/Time: 02/20/23 07:17 Surgeon: Rob Santana MD Pre Op Diagnosis: osteoarthrtis Left hip Patient Data Age: 62 Gender: M Height: 1.7 m Weight: 109.4 kg Last Vital Signs Temp 97.0 F L 02/20/23 06:27 Pulse 81 02/20/23 06:27 Resp 18 02/20/23 06:27 BP 119/79 02/20/23 06:27 Pulse Ox 96 02/20/23 06:27 O2 Del Method Room Air 02/20/23 06:27 Allergies Allergy/AdvReac Type Severity Reaction Status Date / Time No Known Allergies Allergy Verified 02/20/23 06:36 Home Medications Medication Instructions Recorded Confirmed Type calcium polycarbophil 625 mg 1,250 mg PO DAILY 02/24/19 02/20/23 History tablet (FiberCon) lisinopril 40 mg tablet 40 mg PO DAILY #90 tabs 05/31/22 02/20/23 Rx meloxicam 15 mg tablet 15 mg PO DAILY PRN pain #90 tabs 05/31/22 02/20/23 Rx omeprazole 20 mg capsule,delayed 20 mg PO DAILY #90 caps 05/31/22 02/20/23 Rx release cyanocobalamin (vitamin B-12) 1,000 mcg PO DAILY 08/16/22 02/20/23 History 1,000 mcg tablet duloxetine 60 mg capsule,delayed 60 mg PO DAILY #90 caps 09/04/22 02/20/23 Rx release zinc 10 mg tablet 10 mg PO DAILY 01/28/23 02/20/23 History doxycycline hyclate 100 mg capsule 100 mg PO BID #20 caps 01/29/23 02/20/23 Rx tamsulosin 0.4 mg capsule (Flomax) 0.4 mg PO DAILY #90 caps 02/14/23 02/20/23 Rx Patient hx anesthesia problems: none Family hx anesthesia problems: none Results Review: All pre-operative results and documents have been reviewed as part of the pre-operative evaluation. [facility] Past Medical History Medical History (Updated 02/15/23 @ 07:58 by ANNY Alcantar) Actinic keratosis (~2021) left external ear Acute bilateral low back pain with left-sided sciatica (~09/06/20) X-ray on 12/13/2020 reveals mild levoscoliosis, moderate to severe degenerative disc disease from L3-S1 and moderate facet arthropathy throughout with moderate degenerative disc disease at L2-L3. Moderate to severe lumbar spondylosis on x-ray 01/25/2022.MRI of the lumbar spine on 02/09/2022 reveals severe lumbar spondylosis. Adult BMI 40.0-44.9 kg/sq m BMI 37.0-37.9, adult BMI 45.0-49.9, adult BPH without obstruction/lower urinary tract symptoms Chronic anxiety Chronic depression Chronic left hip pain (~12/2021) Moderate to severe osteoarthritis of the left hip and mild arthritis of the right hip on x-rays 01/25/2022. Colon cancer screening Normal colonoscopy 11/07/2022 with diverticulosis with recheck in 10 years. COVID-19 (02/11/21) tested positive on 02/13/2021 Dizziness Dyspnea on exertion Dysuria Elevated fasting glucose fasting glucose 94 and hemoglobin A1c 5.5 on 06/27/2021. fasting glucose 96 on 01/16/2022. Fasting glucose 95 with hemoglobin A1c 5.5 on 08/15/2022. Elevated ferritin (08/15/22) iron 80 with 25% saturation and ferritin elevated at 439 on 08/15/2022. Iron 79 with 25% saturation and ferritin elevated at 563 on 02/05/2023. Elevated liver enzymes AST 18 and ALT 31 on 06/27/2021. Liver enzymes normal on 08/15/2022 with GGT 15, AST 18, ALT 22. Elevated PSA, less than 10 ng/ml (08/15/22) PSA elevated at 4.75 on 08/15/2022. PSA elevated at 5.0 with 12% free PSA on 02/05/2023. Encounter for prostate cancer screening PSA normal at 3.67 on 4 06/27/2021.PSA elevated at 4.75 on 08/15/2022. Essential (primary) hypertension Fatigue Ganglion cyst of right foot Gastro-esophageal reflux disease without esophagitis Hypertension Low TSH level (08/15/22) TSH slightly low at 0.25 on 08/15/2022. TSH normal at 0.62 with free T4 1.1 and T3 total at 160. Microscopic hematuria urinalysis normal on 06/27/2021. Urinalysis normal on 08/15/2022. Urinalysis is normal on 01/24/2023. Mixed hyperlipidemia (06/27/21) total cholesterol 165 with triglycerides elevated at 204 and HDL low a
[2023-02-20] MEDS: ceFAZolin 2 GM/D5W 50 ML 2 GM/50 ML BAG IVPB (07:30)
[2023-02-20] MEDS: ceFAZolin SODIUM 1 GM VIAL 3 GM (08:21)
[2023-02-20] MEDS: ceFAZolin SODIUM 1 GM VIAL 2 GM IV PUSH (11:22)
[2023-02-20] MEDS: TRANEXAMIC ACID 1,000 MG/10 ML AMPUL 1000 MG IV PUSH (11:22)
--- NOTE | 2023-02-20 12:13 | PM.OP ---
Procedure Note - Brief Procedure Note - Brief Date of procedure: 02/20/23 osteoarthrtis Left hip Procedure performed: Left anterior total hip arthroplasty Surgeon: ANNY Alcantar Findings: 63-year-old male who underwent left anterior total hip arthroplasty on 02/14. I was involved in the procedure including positioning the patient on the OR table and 1st assisting through the to surgery. Total time spent was for have others
[2023-02-20] MEDS: HYDROmorphone HCL INJ (*CRX) 1 MG/ML SYR 0.5 MG IV PUSH ×2 (12:25→12:40)
--- NOTE | 2023-02-20 12:33 | W.PM.PROC2 ---
Procedure Note - Detailed Date of Procedure 02/20/23 Pre-op Diagnosis osteoarthrtis Left hip Post-op Diagnosis Same Procedure Performed Direct anterior approach left total hip arthroplasty, obesity, BMI 39. 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 He received 2 g of Ancef weight based vancomycin 1 g of tranexamic acid preoperatively. Padding was applied the feet boots applied patient transferred to the [facility] [place] table left hip prepped draped usual fashion. Because of his obesity BMI 39 this added significant extra difficulty to the procedure adding at least 1 hour of operating time. A 10 cm longitudinal incision was made starting 2 cm lateral to the ASIS. Dissection was carried down to the fascia over the tensor fascia jahaira which was longitudinally incised elevated off the anterior 50% of the TFL muscle. Interval between TFL and rectus femoris developed. Crossing branches of the ascending lateral femoral circumflex vessels were ligated with suture divided. Retractor placed anterior to the hip capsule the hip abducted and internally rotated and the gluteus minimus elevated off the lateral capsule. The gluteus minimus tendon did have some articular side partial-thickness tearing from the greater trochanter but was attached distally. Inverted T capsulotomy was performed and femoral neck osteotomy made according to preoperative templating. The femoral head was removed. It measured 47 mm diameter had severe eburnation throughout. The acetabulum was exposed. There were 2 fractured ossicles of superolateral acetabular rim that were ununited ossicles and were removed. Residual labrum was excised. The leg was externally rotated extended and the interval between conjoined tendon and piriformis incised allowing the piriformis to flipped the conjoined tendon to recess. With the leg back horizontal position traction external rotation acetabulum was prepared. We medialized with a 42 Reamer and reamed up to 49 mm which gave circumferential reaming and upsizing further would tend to compromise the the anterior posterior dumont at the equator. We lightly reamed with a 50 mm Reamer and a 50 trial was snug and seated fully. We impacted the size 50 pinnacle shell at 40? of abduction and anteversion such as the anterior rim was 2 mm under the anterior rim of the acetabulum and a posterior rim the shell was about 2 mm proud of the posterior rim. Excellent Press-Fit was achieved a single screw placed in the ilium for additional fixation and the 32 inner diameter liner placed without difficulty. The femur was externally rotated and extended. Exposure was a little bit more difficult because of his short neck and I found that not using the table hook actually gave us a little bit better exposure without tenting the tensor posterolaterally and this gave us adequate access to the proximal femur. Bone quality was also excellent and a bur was necessary to penetrate through the cancellous bone at the level of the neck cut and to remove some of the bone at the saddle which was quite dense. We broached up to a size 6 and took an intraoperative x-ray with the 1.5 head standard offset neck. This gave us equal leg lengths. I could see that we should be able to upsize and we did have some torsional wiggle on the 6 and we were able to broach up to a size 8 and we countersunk this 2 mm and this had complete torsional stability. The hip was reduced and we trialed again with a 1.5 neck. I felt we were about 2 mm long and the 5 mm was too tight and I felt the 5 mm head was more appropriate to restore the appropriate offset. We countersunk the broach another 4 mm and trialed with the 5 and had appropriate soft tissue tension and Shuck and equal leg lengths radiographically. The calcar was planed and we impacted the size 8 Actis stem which was tight and seated
[2023-02-20] MEDS: fentaNYL CITRATE INJ (*CRX) 100 MCG/2 ML VIAL 25 MCG IV PUSH ×5 (12:46→13:37)
[2023-02-20] MEDS: KETOROLAC 15 MG/ML VIAL (*BKC) IV PUSH ×2 (12:57→18:19)
[2023-02-20] MEDS: LACTATED RINGERS 1,000 ML 100 ML IV CONT (13:20)
--- NOTE | 2023-02-20 13:54 | ADMGEN ---
This patient, Pawel Hogan Jr., was admitted to 3 Med Surg Room 309-01. Patient/family oriented to hospital policies and general routines including ID bracelet, bed and alarms, visiting hours, pain management, procedures, bathroom and other care routines, personal items, smoking policy, room service/diet, and visiting hours. Information on how to activate the Rapid Response Team has been discussed. Patient/Family are encouraged to report perceived risks to care and to ask questions if they do not understand what they are told or what they should do.
[2023-02-20] MEDS: oxyCODONE HCL (*CRX) 5 MG TAB IR PO ×3 (14:08→20:53)
[2023-02-20] MEDS: ONDANSETRON INJ 4 MG/2 ML VIAL IV PUSH (14:08)
--- NOTE | 2023-02-20 15:20 | PM.IMCN ---
Assessment and Plan Assessment and plan (1) S/P total left hip arthroplasty: Code(s): Z96.642 - Presence of left artificial hip joint Status: Acute (2) Obstructive sleep apnea on CPAP: Code(s): G47.33 - Obstructive sleep apnea (adult) (pediatric); Z99.89 - Dependence on other enabling machines and devices Status: Acute (3) Vitamin B12 deficiency: Onset Date: 08/15/22 Code(s): E53.8 - Deficiency of other specified B group vitamins Status: Acute (4) Chronic depression: Code(s): F32.9 - Major depressive disorder, single episode, unspecified Status: Acute (5) Essential (primary) hypertension: Code(s): I10 - Essential (primary) hypertension Status: Acute (6) Gastro-esophageal reflux disease without esophagitis: Code(s): K21.9 - Gastro-esophageal reflux disease without esophagitis Status: Acute Plan 1. S/P total left hip arthroplasty management by ortho team Ambulate with assistance and up to chair cardiac monitoring Q4H closed drain in place - management BID hip precautions in place use IS neurovasc checks - see order for intervals SCDs resume diet: regular pain and nausea medication PRN monitor labs in AM - CBC and CMP bowel regimen prophylactic atb meloxicam held, resume as appropriate 2. CLAIRE on CPAP continue home BiPAP 3. Chronic depression continue her duloxetine to good mood 4. Hypertension continue lisinopril monitor BP/vitals 5. GERD continue home omeprazole (subbed to pantoprazole) Home Meds/Chronic Conditions - BPH: continue tamsulosin - supplements: continue zinc, B12, fibercon Diet: regular GI Prophylaxis: Continue omeprazole DVT Prophylaxis: SCDs, restart Eliquis tomorrow (02/21) Lines: pIV Code Status: Full Code HPI Date of Consult Consult date: 02/20/23 Requesting Physician: Rob Santana MD Primary Care Provider: Adrien Mcfarland MD Consult Narrative Reason for consult: Medical Managment Narrative: Pawel Hogan Jr. is a 62 year old male here for L anterior total arthroplasty (02/20/23). Patient reports chronic left hip pain for the last year and a half. Initially managed with meloxicam. However pain began limiting his ADLs: Unable to perform yd work, exertion painful, walking and doing steps more limited/painful. Patient elected to have surgical management. Postoperatively patient reports his pain has been managed. Mild queasiness without loss of appetite. Denies headache, nausea, weakness or tingling in his lower extremities. No other complaints or questions at this time. Review of Systems Review of Systems: All systems reviewed & are unremarkable except as noted in HPI and below PMFSH Past Medical History Medical History Actinic keratosis (~2021) left external ear Acute bilateral low back pain with left-sided sciatica (~09/06/20) X-ray on 12/13/2020 reveals mild levoscoliosis, moderate to severe degenerative disc disease from L3-S1 and moderate facet arthropathy throughout with moderate degenerative disc disease at L2-L3. Moderate to severe lumbar spondylosis on x-ray 01/25/2022.MRI of the lumbar spine on 02/09/2022 reveals severe lumbar spondylosis. BPH without obstruction/lower urinary tract symptoms Chronic anxiety Chronic depression Chronic left hip pain (~12/2021) Moderate to severe osteoarthritis of the left hip and mild arthritis of the right hip on x-rays 01/25/2022. Colon cancer screening Normal colonoscopy 11/07/2022 with diverticulosis with recheck in 10 years. COVID-19 (02/11/21) tested positive on 02/13/2021 Dizziness Dyspnea on exertion Dysuria Elevated fasting glucose fasting glucose 94 and hemoglobin A1c 5.5 on 06/27/2021. fasting glucose 96 on 01/16/2022. Fasting glucose 95 with hemoglobin A1c 5.5 on 08/15/2022. Elevated ferritin (08/15/22) iron 80 with 25% saturatio
[2023-02-20] MEDS: SENNA/DOCUSATE SODIUM TABLET 2 TAB PO (17:26)
[2023-02-20] MEDS: ceFAZolin 1 GM/NS 50 ML 1 GM/50 ML BAG IVPB (17:59)
[2023-02-20] MEDS: VANCOMYCIN 1,000 MG/NS 250 ML 1,000 MG/250 ML BAG 250 MG IVPB (18:19)
[2023-02-20] MEDS: FAMOTIDINE 20 MG TABLET PO (20:53)
[2023-02-21 02:00] VITALS: PULSE 78; RESP 18; O2SAT 95
[2023-02-21] MEDS: KETOROLAC 15 MG/ML VIAL (*BKC) IV PUSH (03:19)
[2023-02-21] MEDS: ACETAMINOPHEN 500 MG TABLET 1000 MG PO ×2 (03:20→08:21)
[2023-02-21] MEDS: oxyCODONE HCL (*CRX) 5 MG TAB IR PO ×3 (03:20→10:31)
[2023-02-21] MEDS: ceFAZolin 1 GM/NS 50 ML 1 GM/50 ML BAG IVPB (03:21)
[2023-02-21 03:25] VITALS: BP 132/72; PULSE 78; RESP 18; TEMP 37.1; O2SAT 95
[2023-02-21 05:58] LABS: Basophils Percent Auto 0.1 % (0.2-1.2); Eosinophils Percent Auto 0.2 % (0-4.4); Hematocrit 40.4 % (42.0-52.0); Hemoglobin 13.4 g/dL (14.0-18.0); Immature Granulocyte Absolute 0.06 K/mm3 (0.00-0.031); Immature Granulocyte Percent A 0.5 % (0-0.5); Lymphocytes Absolute Auto 1.36 K/mm3 (0.9-3.2); Lymphocytes Percent Auto 10.7 % (18.3-44.2); Mean Corpuscular HGB Conc 33.2 g/dl (32-36); Mean Corpuscular Hemoglobin 29.3 pg (26-34); Mean Corpuscular Volume 88.4 fl (80-100); Mean Platelet Volume 9.5 fl (7.4-10.4); Monocytes Percent Auto 15.4 % (2.6-8.5); Neutrophils Absolute Auto 9.4 K/mm3 (1.3-6.7); Neutrophils Percent Auto 73.1 % (45.5-73.1); Platelet Count Result 223 k/mm3 (150-375); Red Blood Count 4.57 M/mm3 (4.6-6.20); Red Cell Distribution Width 13.1 % (11.5-14.5); White Blood Count 12.8 K/mm3 (4.5-10.0)
[2023-02-21] MEDS: VANCOMYCIN 1,000 MG/NS 250 ML 1,000 MG/250 ML BAG 250 MG IVPB (06:07)
[2023-02-21 06:08] LABS: Anion Gap 5 mmol/L (8-16); Blood Urea Nitrogen 17 mg/dL (9-20); Calcium 8.7 mg/dL (8.4-10.2); Carbon Dioxide 27 mmol/L (22-30); Chloride 100 mmol/L (98-107); Estimated CRCL calculation 100 ml/min; Estimated Glomerular Filt Rate > 60; Glucose 104 mg/dL (65-110); Potassium 4.4 mmol/L (3.4-5.0); Sodium 132 mmol/L (137-145)
--- NOTE | 2023-02-21 07:05 | PM.PNORT ---
Subjective Subjective Date/Time Seen: 02/21/23 07:05 Interval history: Postop day 1 patient is alert. He is afebrile vital signs are stable. His drain is out his incision is dry. Neurovascularly is intact. Pain is very well controlled halls yesterday with physical therapy very comfortable. He started his Eliquis this morning. We will plan have the patient work with therapy this morning and once IV antibiotics have been completed be discharged home later this morning. Morning lab are noted. Objective Data Vital Signs Vital Signs: Vital Signs - 24 hr 02/20/23 12:02 02/20/23 12:15 02/20/23 12:29 Temperature Pulse Rate 82 79 80 Respiratory Rate 20 20 20 Blood Pressure 130/72 144/84 H 148/82 H Pulse Oximetry 100 97 99 Oxygen Delivery Simple Face Mask Simple Face Mask Simple Face Mask Oxygen Flow Rate 6 6 6 Fraction of Inspired Oxygen 02/20/23 12:45 02/20/23 13:15 02/20/23 13:30 Temperature Pulse Rate 88 84 85 Respiratory Rate 20 18 18 Blood Pressure 138/87 147/70 H 138/84 Pulse Oximetry 94 94 94 Oxygen Delivery Room Air Room Air Room Air Oxygen Flow Rate Fraction of Inspired Oxygen 02/20/23 12:20 02/20/23 13:00 02/20/23 13:55 Temperature 36.0 C L Pulse Rate 91 87 Respiratory Rate 18 Blood Pressure 166/88 H 156/97 H Pulse Oximetry 99 94 97 Oxygen Delivery Simple Face Mask Room Air Oxygen Flow Rate 6 Fraction of Inspired Oxygen 02/20/23 14:21 02/20/23 14:50 02/20/23 15:14 Temperature 37.3 C Pulse Rate 80 Respiratory Rate 18 Blood Pressure 136/93 H Pulse Oximetry 96 94 Oxygen Delivery Room Air Room Air Oxygen Flow Rate Fraction of Inspired Oxygen 02/20/23 16:30 02/20/23 19:25 02/20/23 23:25 Temperature 36.1 C L 36.3 C L Pulse Rate 88 80 Respiratory Rate 18 18 Blood Pressure 133/77 128/80 Pulse Oximetry 94 97 96 Oxygen Delivery Room Air Oxygen Flow Rate Fraction of Inspired Oxygen 21 02/21/23 02:00 02/21/23 03:25 Temperature 37.1 C Pulse Rate 78 78 Respiratory Rate 18 18 Blood Pressure 132/72 Pulse Oximetry 95 95 Oxygen Delivery Room Air Oxygen Flow Rate Fraction of Inspired Oxygen 21 Output Intake/Output: Intake & Output 02/18/23 02/19/23 02/20/23 02/21/23 23:59 23:59 23:59 23:59 Intake Total 700 Output Total 350 400 Balance 350 -400 Meds/Results Medications: Active Medications Generic Name Dose Route Start Last Admin Trade Name Freq PRN Reason Stop Dose Admin Acetaminophen 1,000 mg 02/20/23 21:00 02/21/23 03:20 Acetaminophen 500 Mg Tablet PO 1,000 mg Q6H SABINE Administration Apixaban 2.5 mg 02/21/23 09:00 Apixaban 2.5 Mg Tablet PO Q12HR SABINE Calcium Polycarbophil 1,250 mg 02/21/23 09:00 Calcium Polycarbophil 625 Mg Tablet PO DAILY SABINE Cefdinir 300 mg 02/21/23 21:00 Cefdinir 300 Mg Capsule PO Q12HR SABINE Celecoxib 200 mg 02/21/23 09:00 Celecoxib 200 Mg Capsule PO DAILY [facility] Cyanocobalamin 1,000 mcg 02/21/23 09:00 Cyanocobalamin 1,000 Mcg Tablet PO DAILY SABINE Duloxetine HCl 60 mg 02/21/23 09:00 Duloxetine Hcl 60 Mg Capsule.Dr PO DAILY SABINE Famotidine 20 mg 02/20/23 21:00 02/20/23 20:53 Famotidine 20 Mg Tablet PO 20 mg Q12HR SABINE Administration Hydroxyzine HCl 50 mg 02/20/23 13:40 Hydroxyzine Hcl 25 Mg Tablet PO Q4H PRN Itching Vancomycin HCl 1,000 mg in 250 mls @ 250 mls/hr 02/20/23 19:00 02/21/23 06:07 Vancomycin 1,000 Mg/Ns 250 Ml IVPB 02/21/23 07:59 250 mls/hr Q12H SABINE Administration Cefazolin Sodium 1 gm in 50 mls @ 100 mls/hr 02/20/23 19:00 02/21/23 03:21 Ancef 1 Gm/Ns 50 Ml IVPB 02/21/23 11:29 100 mls/hr Q8H SABINE Administration Lisinopril 40 mg 02/21/23 09:00 Lisinopril 20 Mg Tablet PO DAILY SABINE Morphine Sulfate 2 mg 02/20/23 13:40 Morphine Sulfate (*Crx) 2 Mg/Ml Inj IV PUSH Q3H PRN Pain Rated 7-10 Naloxone HCl 0.1
--- NOTE | 2023-02-21 07:09 | PM.DS ---
DS: Admitting Diagnosis Discharge Date 02/21 Admitting Diagnosis Left hip DJD DS: Discharge Diagnosis Discharge Diagnosis (1) Hip arthritis: Code(s): M16.10 - Unilateral primary osteoarthritis, unspecified hip Status: Acute DS: Summary Hospital Course Hospital Course: 62-year-old male who underwent left anterior total hip arthroplasty on 02/20. Underwent the procedure without complications. Postoperatively he has been vital signs stable. He is weight-bearing as tolerated walker for 1 month postoperatively. He was up walking the day of surgery with physical therapy in the halls. Pain is well controlled with scheduled Tylenol as well as oxycodone 5 mg. He is on Eliquis for DVT profile on the morning of postop day 1 patient was very alert comfortable. He is having little bit of soreness in the proximal thigh but no real. His drain is out. Patient will work with physical therapy on the morning of 02/21. Once IV antibiotics have been completed he will be discharged home. He has been advised to keep leg elevated with the foot higher than the heart prevent swelling. He will change his dressing daily. Ten day course of Omnicef as well as a 10 day course of Celebrex. He also go home on Senokot and MiraLax. Patient was advised any questions or concerns he is to call the office. Time Spent with Patient Time attestation: Total time spent providing and/or coordinating discharge services: DS: Data Data Completed and Pending Labs on day of discharge: Labs from last 24 hours 02/21/23 02/20/23 05:17 06:41 WBC 12.8 H RBC 4.57 L Hgb 13.4 L Hct 40.4 L MCV 88.4 MCH 29.3 MCHC 33.2 RDW 13.1 Plt Count 223 MPV 9.5 Immature Gran % (Auto) 0.5 Neut % (Auto) 73.1 Lymph % (Auto) 10.7 L [place] % (Auto) 15.4 H Eos % (Auto) 0.2 Baso % (Auto) 0.1 L Lymph # (Auto) 1.36 [place] # (Auto) 2.0 H Eos # (Auto) 0.0 Baso # (Auto) 0.0 Abs Immat Gran (auto) 0.06 H Absolute Neuts (auto) 9.4 H Absolute Nucleated RBC 0.0 Nucleated RBC % 0.0 Sodium 132 L Potassium 4.4 Chloride 100 Carbon Dioxide 27 Anion Gap 5 L BUN 17 Creatinine 0.80 Estim Creat Clear Calc 100 Estimated GFR > 60 Glucose 104 Calcium 8.7 Blood Type O Negative Antibody Screen Negative Discharge Plan Discharge Patient Disposition: Home, Self-Care Discharge Instructions: ROB SANTANA M.D [facility], [facility] [address] [place] [address] POST-OPERATIVE DISCHARGE INSTRUCTIONS ANTERIOR TOTAL HIP ARTHROPLASTY 1. Move toes/feet up and down every hour while awake. 2. Be up walking every hour while awake. 3. Use cane in hand opposite of side of hip surgery or walker as comfort allows. Avoid sitting in a chair unless eating, receiving visitors or using the toilet. 4. When resting, lie on back with leg elevated above heart to minimize swelling. Significant swelling could indicate a blood clot and if this occurs, call the office (or go to the ER) to have a venous ultrasound performed. 5. Wound Care: Keep dry sponge on wound for 2 weeks. Use minimal tape. 6. Follow weight bearing status as instructed. 7. May shower with dressing off. Patient Instructions: Pain Management (DC), Anterior Hip Replacement (DC) Follow-up/Referrals: Rob Santana MD [Physician] - Keep Reg. Scheduled Appt. Discharge Medications: New acetaminophen 500 mg Tablet 1,000 mg PO Q6H Qty: 90 0RF Eliquis 2.5 mg Tablet 2.5 mg PO Q12HR Qty: 70 0RF celecoxib [Celebrex] 200 mg Capsule 200 mg PO DAILY Qty: 10 0RF polyethylene glycol 3350 [Miralax] 17 gram Powder In Packet 17 g PO QAM Qty: 30 0RF sennosides-docusate sodium [Senokot-S] 8.6-50 mg Tablet 2 tab PO BID Qty: 60 0RF cefdinir 300 mg Capsule 300 mg PO Q12HR Qty: 20 0RF oxycodone 5 mg Tablet 5 mg PO Q4HR Qty: 40 0RF Continued tamsulosin
[2023-02-21 07:25] VITALS: BP 117/76; PULSE 78; RESP 16; TEMP 36.7; O2SAT 96
[2023-02-21 08:06] VITALS: O2SAT 94
[2023-02-21] MEDS: polyethylene glycoL 3350 17 GM POWD.PACK PO (08:20)
[2023-02-21] MEDS: TAMSULOSIN HCL 0.4 MG CAPSULE PO (08:21)
[2023-02-21] MEDS: lisinopriL 20 MG TABLET 40 MG PO (08:21)
[2023-02-21] MEDS: CELECOXIB 200 MG CAPSULE PO (08:21)
[2023-02-21] MEDS: PANTOPRAZOLE 40 MG TABLET PO (08:21)
[2023-02-21] MEDS: APIXABAN 2.5 MG TABLET PO (08:21)
[2023-02-21] MEDS: DULoxetine HCL 60 MG CAPSULE.DR PO (08:21)
[2023-02-21] MEDS: SENNA/DOCUSATE SODIUM TABLET 2 TAB PO (08:21)
[2023-02-21] MEDS: FAMOTIDINE 20 MG TABLET PO (08:21)
[2023-02-21] MEDS: CYANOCOBALAMIN 1,000 MCG TABLET 1000 MCG PO (08:21)
--- NOTE | 2023-02-21 09:14 | WPDANESPN ---
Anes - Prog Note Post-Op Date/Time: 02/21/23 09:14 Cardiovascular status: normal Respiratory status: normal Airway patency: baseline Mental status: baseline Post-Op hydration status: normal Vital Signs: Last Vital Signs Temp 36.7 C 02/21/23 07:25 Pulse 78 02/21/23 07:25 Resp 16 02/21/23 07:25 BP 117/76 02/21/23 07:25 Pulse Ox 94 02/21/23 08:06 O2 Del Method Room Air 02/21/23 08:06 O2 Flow Rate 6 02/20/23 12:29 FiO2 21 02/21/23 08:06 Pain Score (VAS): 07/23 I/O: Intake & Output 02/20/23 02/21/23 02/21/23 23:59 07:59 15:59 Intake Total 700 Output Total 350 400 Balance 350 -400 Laboratory Tests 02/21/23 05:17 02/21/23 05:17 02/21/23 05:17 WBC 12.8 H RBC 4.57 L Hgb 13.4 L Hct 40.4 L MCV 88.4 MCH 29.3 MCHC 33.2 RDW 13.1 Plt Count 223 MPV 9.5 Immature Gran % (Auto) 0.5 Neut % (Auto) 73.1 Lymph % (Auto) 10.7 L [place] % (Auto) 15.4 H Eos % (Auto) 0.2 Baso % (Auto) 0.1 L Lymph # (Auto) 1.36 [place] # (Auto) 2.0 H Eos # (Auto) 0.0 Baso # (Auto) 0.0 Abs Immat Gran (auto) 0.06 H Absolute Neuts (auto) 9.4 H Absolute Nucleated RBC 0.0 Nucleated RBC % 0.0 Sodium 132 L Potassium 4.4 Chloride 100 Carbon Dioxide 27 Anion Gap 5 L BUN 17 Creatinine 0.80 Estim Creat Clear Calc 100 Estimated GFR > 60 Glucose 104 Calcium 8.7 Post-procedural complaints: nausea and vomiting Patient Feedback: Patient satisfied with anesthetic care.
--- NOTE | 2023-02-21 11:27 | PC.NURSE ---
patient got d/c papers and instructions, extra gauze for home changes. He also received pain med prior to d/c. IV out, left by wheelchair in private car. all belongings sent with him
== END 2023-02-21 10:15 | disposition home or self-care (01) ==
LOC: ANHSURGERY 06:20 → ANH3MEDSUR 13:42
PROVIDERS: Physician Assistant Surgical; PCP Family Medicine; Visit Provider Orthopaedic Surgery
PROC: (CPT 27130; principal; 2023-02-20 07:30)
DX: M16.12 Unilateral primary osteoarthritis, left hip (principal); I10 Essential (primary) hypertension; K21.9 Gastro-esophageal reflux disease without esophagitis; E78.2 Mixed hyperlipidemia; G47.33 Obstructive sleep apnea (adult) (pediatric); E53.8 Deficiency of other specified B group vitamins; F41.9 Anxiety disorder, unspecified; F32.A Depression, unspecified; Z99.89 Dependence on other enabling machines and devices; E66.9 Obesity, unspecified; Z68.37 Body mass index [BMI] 37.0-37.9, adult
CPT/HCPCS: 27130; 36415; 73501; 80048; 85025; 86850; 86900; 86901; 97110; 97116; 97161; 97165; 97530; 97535; 99199; A9270; C1776; J0171; J0690; J1170; J1885; J2250; J2270; J2405; J2795; J3010; J3370; J7040; J7120

== ENCOUNTER 2023-04-24 14:24 | Outpatient (RCR) | payer BC, SELFPAY ==
--- NOTE | 2023-04-24 15:29 | OPREHPOC ---
Outpatient Therapy Plan of Care This is a Multidisciplinary Plan of Care that may contain components documented by all disciplines (PT, OT, and ST.) PT Problem 1 PT Problem #1 Knowledge Deficit PT Goal 1 Goal 1. independent and compliant with HEP Target Visit 2 PT Problem 2 PT Problem #2 Impaired Functional Mobil PT Goal 1 Goal 1. oswestry to display 10% or less functional deficits 2. 20 degrees or less bilateral hamstrings tightness 3. improve L hip strength to 4+/5 or better overall 4. patient to ambulate without antalgia favoring the L LE. Target Visit 2
--- NOTE | 2023-04-24 15:29 | PTOPEVAL1 ---
Assessment and note entered by JT File, PT Evaluation Information Assessment Status Evaluation Diagnosis lumbar spondylosis Onset 04/19/23 Subjective Information patient reports he would like to be evaluated for his back pain and given a home routine as he is unable to commit to frequent visits. he reports he has lower back pain from DDD. he reports sitting for increased time bothers him, and will produce pain in his L buttock. he reports he had hip replacement of the L hip back in february which has helped with reduction of some back pain/ symptoms. he reports he is returning to work in may. 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 Reported Pain Level Pain Score 3: Self Report Assessment PT Clinical Summary mr. rubalcava is a 62 yo man who presents to skilled PT for evaluation and tretment of lower back and L buttock pain. he presents this date with signs and symptoms of lumbar DDD and mild piriformis syndrome. he would benefit from continued skilled PT to address his lumbar pain, L hip weakness, and mm tightness. however, he can only commit to an HEP at this time. he would benefit from HEP 3x weekly at home, and to follow up with PT in roughly 3 weeks to assess his progress and tolerance to HEP. Plan of Care Interventions Electrical Stimulation,Hot Pack/Cold Pack,Patient/ Caregiver Educati,Therapeutic Exercise PT Services Indicated Yes Treatment Frequency and 1 additional visit after this evaluation in Duration roughly 3 weeks to assess for tolerance to HEP and reduction of pain/symptoms. These treatments will address the objective and functional deficits as defined above. The patient will be advanced safely and appropriately in order for the patient to progress towards his/her prior level of function. Additional exercises will be introduced and as well as a comprehensive home exercise program upon discharge, if needed, ?to ensure carryover of functional gains achieved in the clinic. This treatment plan has been reviewed and agreement upon by the patient.
--- NOTE | 2023-05-15 09:07 | OPREHPOC ---
Outpatient Therapy Plan of Care This is a Multidisciplinary Plan of Care that may contain components documented by all disciplines (PT, OT, and ST.) PT Problem 1 PT Problem #1 Knowledge Deficit PT Goal 1 Goal 1. independent and compliant with HEP Target Visit 2 Progress Met PT Problem 2 PT Problem #2 Impaired Functional Mobil PT Goal 1 Goal 1. oswestry to display 10% or less functional deficits 2. 20 degrees or less bilateral hamstrings tightness 3. improve L hip strength to 4+/5 or better overall 4. patient to ambulate without antalgia favoring the L LE. Target Visit 2 Progress Met
--- NOTE | 2023-05-15 09:07 | PTOPDC ---
Assessment and note entered by JT File, PT Evaluation Information Assessment Status Discharge Diagnosis lumbar spondylosis Onset 04/19/23 Subjective Information patient reports he is doing well at home. he reports he is compliant with his HEP at home. he reports he has no pain today. he reports he was cleared by his hip surgeon to perform hip flexion exercises past 90 degrees of hip flexion. Reported Pain Level Pain Score 0: Self Report Assessment PT Clinical Summary mr. rubalcava returns therapy for his 2nd skilled PT visit. he has been compliant with HEP at home, and doing well. he has no pain today, and has achieved all goals for skilled PT. he will DC skilled therapy, and continue with HEP independent . he was educated to contact PT department if he needs HEP exercises progressed. Plan of Care PT Services Indicated Yes
== END 2023-05-15 09:31 | disposition home or self-care (01) ==
LOC: CHSPT 14:24
PROVIDERS: Visit Provider Orthopaedic Surgery
DX: M47.896 Other spondylosis, lumbar region (principal); M51.36 Other intervertebral disc degeneration, lumbar region; M54.9 Dorsalgia, unspecified
CPT/HCPCS: 97014; 97110; 97161; G0283

== ENCOUNTER 2023-05-23 13:33 | Outpatient (CLI) | payer BC, SELFPAY ==
--- NOTE | ~2023-05-23 | MR_ITS ---
EXAMINATION: MR shoulder LT wo con DATE: 05/23/2023 14:18 INDICATION: Left shoulder pain TECHNIQUE: Magnetic resonance imaging (MRI) of the left shoulder was performed without intravenous co ntrast. Sequences included axial PD-weighted FS FSE, coronal oblique PD-weighted FS FSE, coronal obli que T2-weighted FS FSE, sagittal PD-weighted FS FSE, and sagittal T1-weighted SE. COMPARISON: None. FINDINGS: Coracoacromial arch: The acromion undersurface is flat in morphology (type I). Mild thickening of the coracoacromial ligam ent. Mild to moderate acromioclavicular osteoarthritis. Rotator cuff: Moderate supraspinatus and infraspinatus tendinopathy without discrete tear. The teres minor tendon i s normal. Mild subscapularis tendinopathy without discrete tear. Mild fatty atrophy of the teres lexy r muscle belly. Biceps tendon, glenoid labrum and glenohumeral cartilage: Moderate tendinopathy of the long head biceps tendon. There is a longitudinal split tear beginning sl ightly below the level of the intertubercular groove with partial thickness tear of a portion of the tendon at the level of the intertubercular groove. Cortical irregularity with tiny central subchondra l osteophyte and minimal subarticular edema-like signal change underlying a small deep chondral ulcer ation at the superomedial aspect of the humeral head. Additional mild partial-thickness cartilage los s with mild chondral surface regularity along the inferomedial aspect of the humeral head. Chondral f issuring with small focus of subarticular edema-like signal change at the central aspect of the gleno id. There is labral degeneration and small marginal osteophytes along the inferior glenoid. Fluid: Small amount of fluid and mild synovitis at the long head biceps tendon sheath consistent with bicipi erik tenosynovitis. There is also a small glenohumeral joint effusion with minimal synovitis at the ax illary recess. No loose osteochondral bodies. No abnormal fluid in the subacromial/subdeltoid bursa t o suggest bursitis. Bones: Bone alignment is normal. No fracture or pathologic marrow replacing process. There are cystic change s along the greater and lesser tuberosities likely related to chronic rotator cuff disease. IMPRESSION: 1. Moderate supraspinatus and infraspinatus and mild subscapularis tendinopathy without discrete tear . 2. Moderate tendinopathy with longitudinal split tearing and partial thickness tearing of the long he ad biceps tendon. 3. Mild glenohumeral osteoarthritis with small regions of high-grade chondromalacia at the humeral he ad and glenoid and with degeneration of the inferior glenoid labrum. 4. Mild to moderate acromioclavicular osteoarthritis. Reviewed, dictated and finalized at location A. [facility] IMPRESSION: 1. Moderate supraspinatus and infraspinatus and mild subscapularis tendinopathy without discrete tear. 2. Moderate tendinopathy with longitudinal split tearing and partial thickness tearing of the long head biceps tendon. 3. Mild glenohumeral osteoarthritis with small regions of high-grade chondromal acia at the humeral head and glenoid and with degeneration of the inferior janet oid labrum. 4. Mild to moderate acromioclavicular osteoarthritis.
== END 2023-05-23 13:34 | disposition home or self-care (01) ==
LOC: ANHIMG 13:37
PROVIDERS: Visit Provider Orthopaedic Surgery
DX: M19.012 Primary osteoarthritis, left shoulder (principal)
CPT/HCPCS: 73221

== ENCOUNTER 2023-06-18 13:41 | Outpatient (CLI) | payer BC, SELFPAY ==
--- NOTE | ~2023-06-18 | XR_ITS ---
EXAMINATION: XR lg joint inject/asp w image DATE: 06/18/2023 14:43 INDICATION: Left shoulder pain TECHNIQUE: A time-out was performed to verify the patient's name, date of , and procedure to b e performed. The procedure including the risks, benefits, and alternatives was discussed with the pat ient. Risks discussed included bleeding and infection. The patient understood the risks and agreed to proceed. The skin overlying the rotator cuff interval of the left glenohumeral joint was prepped an d draped in usual sterile fashion. Anesthetic was administered with 1% lidocaine subcutaneously. A 22 G needle was advanced under fluoroscopic guidance into the joint. Injection of 1 mL of Omnipaque 240 confirmed intra-articular position of the needle. Subsequently, injectate consisting of 5 mm a 4 :1 mixture of 1% lidocaine: 80 mg/mL Depo-Medrol for a total dosage of 80 mg Depo-Medrol was instille d. Washout of contrast was seen confirming intra-articular administration. The needle was removed and the entry site was cleaned and dressed. There were no immediate complications. Fluoroscopy exposure time was 0.1 minutes. The total number of images was 2. FINDINGS: Real-time fluoroscopy demonstrates the needle in the left glenohumeral joint. Patient's catherine n prior to procedure:7/10. Patient's pain following the procedure: 0/10. IMPRESSION: 1. Successful left glenohumeral joint injection of local anesthetic and steroid with decrease in the patient's presenting pain. Reviewed, dictated and finalized at location A. NEYMAN LINEMAN
== END 2023-06-18 13:42 | disposition home or self-care (01) ==
LOC: ANHIMG 13:43
PROVIDERS: Visit Provider Orthopaedic Surgery
DX: M25.512 Pain in left shoulder (principal)
CPT/HCPCS: 20610; 77002; J1040; Q9966

== ENCOUNTER 2023-11-11 14:27 | Outpatient (CLI) | payer BC, SELFPAY ==
--- NOTE | 2023-11-11 14:43 | ECG_ITS ---
Test Date: 2023-11-11 14:58:55 Measurements Intervals [place] Rate: 64 P: 33 ME: 200 QRS: 38 QRSD: 97 T: 21 QT: 376 QTc: 390 Interpretive Statements SINUS RHYTHM WITH OCCASIONAL VENTRICULAR PREMATURE COMPLEXES BORDERLINE AV CONDUCTION DELAY CONSIDER INFERIOR INFARCT, AGE INDETERMINATE ABNORMAL ECG No previous ECG available for comparison Electronically Signed On 11-11-2023 15:02:31 CDT by Ignacio Douglas D.O.
== END 2023-11-11 14:28 | disposition home or self-care (01) ==
LOC: ANHCARD 14:28
PROVIDERS: PCP Family Medicine; Visit Provider Family Medicine
DX: I49.9 Cardiac arrhythmia, unspecified (principal); R94.31 Abnormal electrocardiogram [ECG] [EKG]
CPT/HCPCS: 93005

== ENCOUNTER 2023-11-28 07:55 | Outpatient (CLI) | payer BC, SELFPAY | END 2023-11-28 07:56 | disposition home or self-care (01) | LOC: ANHAUDASC 07:57 | PROVIDERS: PCP Family Medicine; Visit Provider Otolaryngology | DX: H69.90 Unspecified Eustachian tube disorder, unspecified ear (principal); R26.89 Other abnormalities of gait and mobility; J31.0 Chronic rhinitis; H61.21 Impacted cerumen, right ear; H90.3 Sensorineural hearing loss, bilateral | CPT/HCPCS: 92557; 92567 ==

== ENCOUNTER 2024-05-29 13:54 | Emergency (ER) | payer BC, SELFPAY ==
--- NOTE | ~2024-05-29 | XR_ITS ---
EXAMINATION: XR chest 2V DATE: 05/29/2024 14:30 INDICATION: Cough. Shortness of breath. TECHNIQUE: Frontal and lateral views of the chest were obtained on 3 radiographs. COMPARISON: Chest 2 views 05/26/2017 FINDINGS: There is no pneumonia, pleural effusion, or pneumothorax. The heart size is normal. IMPRESSION: 1. No acute cardiopulmonary disease. Reviewed, dictated and finalized at location A. [facility] ASSURANCE NURSE
[2024-05-29 13:57] VITALS: BP 132/81; PULSE 92; RESP 18; TEMP 36.6; O2SAT 96
--- OUTSIDE RECORDS SUMMARY | 2024-05-29 13:58 | XMS_ITS | Data Portability ---
Author Organization [place] [facility] [employer], Main Office Address [address] [place] [address] Care Team Providers Care Library Information Technician Name Role Phone BART MCFARLAND Primary Care Provider [phone] BART MCFARLAND Referring Provider [phone] Assessment Encounter Date Assessment Date Assessment LastModified by Organization Details LastModified Time 03/21/2023 03/21/2023 HPI: Patient returns. Is 1 month out left anterior total hip arthroplasty. Overall doing well. He states that the numbness that he has been having in lateral thigh is improving. It use to be all the way to the knee but doubt it is only to about mid thigh. Otherwise get around very comfortably. Having minimal pain. He has been using a walker. Physical exam: Patient is walking well today with his walker. Incisions well healed. No increased swelling lower extremity. Impression: Patient doing well 1 month out left anterior total hip arthroplasty. He will finish up his 5 week course of Eliquis. Can transition to the cane at this point and may increase activities as tolerated. We will plan on seeing him back in a month for re-evaluation. Not available 03/21/2023 15:36:53 04/19/2023 04/19/2023 Impression: Patient doing well following his left total hip arthroplasty. He is a little bit worried about going back to work with his persistent lower back pain. Is lower back pain is better than it was a month ago. 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 I think it may be helpful to send him for physical therapy for a back stabilization program. I have discussed with him that I would recommend that he avoid repetitive hip flexion exercises which can cause iliopsoas tendinitis after hip replacement. He is going to resume his meloxicam. I will see him back in 4 weeks with his progress and hopefully you greatly return to work at that time. Not available 05/05/2023 20:05:39 05/13/2023 05/13/2023 Impression: 1. Moderate glenohumeral joint osteoarthritis right shoulder. 2. Suspected proximal long head of biceps partial tearing left shoulder with probable mild glenohumeral joint osteoarthritis. I have discussed options with him. I think it would be reasonable to obtain an MRI scan left shoulder To establish the diagnosis. he would like to proceed with that. I will see him back after the test. 30 minutes were spent total care this patient more than half the time spent in [id number] care. Not available 05/19/2023 19:30:48 05/17/2023 05/17/2023 HPI: Patient returns. He is 3 months out from his left anterior total hip arthroplasty. Last time we saw him was having some back issues was still not feeling strong enough to go back to work. At this point he is doing much better. He is having no symptoms in the hip or his back at this point. He has been doing most activities around house comfortable any complaints physical exam: Patient is walking very well. He has excellent posture. No limp. No increased swelling either lower extremity. Impression: Patient is now 3 months out left anterior total hip arthroplasty. He would like to be released to go back to work full duty only we will give him a note do so. We will see him back at his 1 year anniversary or sooner if he has problems. Not available 05/17/2023 09:25:51 03/03/2024 03/03/2024 Assessment: Very severe OSAHS, AHI = 62 Plan: The following were reviewed and explained to the patient: [facility] split night sleep study 05/29/17 New CPAP to be ordered in 2025 c/o [employer] in [place], 10 minutes away from where he lives in [facility]. PAP compliance downloaded and interpreted x 20 minutes. Data reviewed and explained to the patient. Average apnea/hypopnea index (AHI) is 0.8. Patient used PAP > 4 hours 99% of the time. PAP is set at 10 cmH2O. PAP will remain at 10 cmH2O. Keep EPR +2 time study observer. Keep ramp start at 5 cmH2O. Keep ramp duration at 10 minutes. Keep humidifier level at 5. Oxygen supplementation: none Patient is benefiting from PAP therapy. Encouraged patient to maintain PAP use more than 70% of the time. Statement of PAP use and benefits will be sent to the home care store. Educated the patient on problems and solutions associated with positive airway pressure (PAP) use. Difficulty tolerating pressure, mask leaks, intolerance of interface, nasal congestion, claustrophobic response, dry mouth, and unintentional mask removal during sleep were covered. CPAP supplies ordered. A major predictor of success with use of PAP is follow-up with both the respiratory supplier and the treating physician. To help assess adherence, a downloadable card/chip is ordered with the PAP equipment. The card/chip will be downloaded by the respiratory supplier and sent to the treating physician. The download results can show the treating physician information about adherence to treatment, residual AHI while on treatment and presence of large mask leakage. This information is especially helpful if the patient has residual sleepiness despite treatment. General information on sleep disorder breathing, evaluation of sleep disordered breathing, treatment with PAP therapy, and living with PAP therapy were covered. We discussed with the patient the impact of weight on: Sleep disordered breathing Hypertension JULIO We discussed with the patient the benefit of PAP therapy on: Sleep disordered breathing Depression Hypertension JULIO Educated the patient on sleep hygiene measures. Relaxing rituals to rest easy, understanding foods with positive and negative impact on sleep, creating a peaceful sleep environment, timing of exercise, using herbal sleep aids, and practicing sleep-friendly meditation were covered. To determine how much sleep is needed, the patient will assess where (s)he falls on the spectrum, examine what lifestyle factors such as work schedules and stress are affecting the quality and quantity of sleep. In general, adults need 7-9 hours of sleep. Educated the patient regarding foods that promote sleep. These include but are not limited to cherries, bananas, toast, oatmeal, and warm milk. Educated the patient regarding foods and drinks to avoid before bedtime. These include but are not limited to aged cheese, chocolate, spicy foods, tomato-based sauces, soy, ginseng tea and processed meat. Advocated influenza vaccination annually and pneumonia vaccination in 2026. Advocated weight loss through diet and exercise. Patient's ideal body weight according to height and gender is up to 160 lbs. Encouraged patient to adjust caloric intake to maintain/achieve ideal body weight, emphasizing on fruits, vegetables, whole grains, and fat-free or low-fat products. These include lean meats, poultry, fish, beans, eggs, and nuts and foods that are low in saturated fats, trans-fats, cholesterol, salt (sodium), and glycemic index. Stressed the importance of regular exercise up to the patient's capacity limits. In this case, we recommend 20 min daily walking, 2 days a week of resistance training. Patient to monitor BP daily and bring records to PCP for further management. Follow up: 1 year, February 2025 [email or web address] Not available 03/03/2024 09:14:46 Plan of Treatment Reminders Order Date Submit Date Provider Last Modified By Organization Details Last Modified Time Details Appointments Any 15 2024 07:30A Jerry Bauer MD Not available Not available Not available Lab None recorded. Referral physical therapist referral - SEE ATTACHED [address] [facility], [address] [place], [address], 05/06/2023 14:32:38 Procedures None recorded. Surgeries None recorded. Imaging MRI, shoulder, w/o contrast - GIVE PT A CD OF IMAGES [address], [address], [place], [address], 05/27/2023 10:52:08 XR, shoulder [address] [facility], [address], [place], [address], 05/27/2023 10:52:07 XR, hip + pelvis, unilatera l, 2 or 3 view 2022 023 [email or web address] [facility], [address] [place] [address], [place], [address], 03/21/2023 16:19:02 Medication Orders meloxicam 15 mg tablet 2023 024 [facility] [address], [id number], 03/03/2024 08:52:39 Patient TargetsNo targets recorded. Patient InstructionsNo instructions recorded. Reason for Referral Physical Therapist Referral for Lumbar spondylosis SEE ATTACHED Referring Physician: Rob Santana, Orthopedic Surgery, Encounter Date: 04/19/2023 Results Created Date Observation Date Name Description Value Unit Range Abnormal Flag Note LastModifiedBy Organization Detail LastModifiedTime 02/21/2002/20/2023 XR, hip + pelvi s, unila teral No observ ation record ed. [address], [place], [address], 02/22/2023 10:33:00 02/21/20 23 02/20/2023 XR, hip + pelvi s, unila teral No observ ation record ed. [address], [place], [address], 02/22/2023 10:33:21 03/21/20 23 XR, hip + pelvi s, unila teral , 2 or 3 view No observ ation record ed. [email or web address] [address], [place], [address], 03/21/2023 15:35:56 05/13/19 24 XR, shoul brigido No observ ation record ed. [email or web address] [facility] [address] [facility] [address], [place], [address], 05/19/2023 19:28:56 05/23/19 24 05/23/2023 MRI, shoul brigido, w/o contr ast No observ ation record ed. [address], [place], [address], 05/27/2023 12:29:03 06/18/19 24 06/18/2023 injec tion, shoul brigido, fluor o graciela goodman (PROC ) No observ ation record ed. [address] [facility] [address], [place], [address], 06/19/2023 11:37:32 Result Notes None recorded. Problems Name Problem SNOMED Code Status Onset Date Resolution Date Notes Provider Name and Address Organization Details Recorded Time Body mass index 40+ - severely obese 735332356 Active 2018 Not Available [facility] 3 19:44:49 Obstructiv e sleep apnea syndrome 93721220 Active 2018 Not Available [facility] 3 19:44:49 Pain of left hip joint 2124072352013 00 Active 2022 CELESTINE Hancock null, [facility] 3 15:18:19 Lumbar spondylosi s 400292238 Active 2023 Gemini Carranza COMMODITY DIRECTOR null, [facility] 4 09:56:43 Shoulder pain 64495964 Active 2023 CELESTINE Hancock null, [facility] 4 15:44:47 Bilateral shoulder joint pain 0126731753076 9104 Active 2023 CELESTINE Hancock null, [facility] 4 15:45:08 Pain of left shoulder joint 5991782001420 9109 Active 2023 Gemini Carranza COMMODITY DIRECTOR null, [facility] 4 17:03:54 Notes:Medical History: Depre ssion Obesity with very severe OSAHS, AHI = 62, 05/29/17, on CPAP c/o [facility] Hypertension JULIO Procedure History: Bilateral CTS release surgeries 2003 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 Procedures Surgical History None recorded. Imaging Results Imaging Date Name Status LastModified by Organiz ation Details LastModified Time 02/20/2023 XR, hip + pelvis, unilateral completed [address], [place], [address], 02/22/2023 10:33:00 02/20/2023 XR, hip + pelvis, unilateral completed [address], [place], [address], 02/22/2023 10:33:21 03/21/2023 XR, hip + pelvis, unilateral, 2 or 3 view completed [email or web address] [facility] [address], [place], [address], 03/21/2023 15:35:56 05/13/2023 XR, shoulder completed [email or web address] [facility] [address], [place], [address], 05/19/2023 19:28:56 05/23/2023 MRI, shoulder, w/o contrast completed [address], [place], [address], 05/27/2023 12:29:03 06/18/2023 injection, shoulder, fluoro guidance (PROC) completed [address] [facility] [address] [place] [address] [address], [place], [address], 06/19/2023 11:37:32 Procedure Notes None recorded. Medical Equipment None Reported. Allergies No known drug allergies Medications Name Sig Start Date Stop Date Status Note LastModified by Organization Details LastModified Time celecoxib 200 mg capsule 03/04 completed Not Available Not Available Not Available amoxicillin 500 mg capsule 03/03 completed Not Available Not Available Not Available venlafaxine ER 37.5 mg capsule,ext ended release 24 hr 07/24 completed Not Available Not Available Not Available venlafaxine ER 75 mg capsule,ext ended release 24 hr 07/24 completed Not Available Not Available Not Available doxycycline hyclate 100 mg capsule 03/04 completed Not Available Not Available Not Available azithromyci n 250 mg tablet 11/06 completed Not Available Not Available Not Available benzonatate 200 mg capsule 11/06 completed Not Available Not Available Not Available meloxicam 15 mg tablet Take 1 tablet every day by oral route. 03/03 completed Not Available Not Available Not Available prednisone 20 mg tablet 11/06 completed Not Available Not Available Not Available fluorouraci l 5 % topical cream 03/04 completed Not Available Not Available Not Available clindamycin HCl 150 mg capsule 03/03 completed Not Available Not Available Not Available acetaminoph en 300 mg-codeine 30 mg tablet 05/26 completed Not Available Not Available Not Available sulfamethox azole 800 mg-trimetho prim 160 mg tablet 03/04 completed Not Available Not Available Not Available amoxicillin 500 mg tablet Take 4 tablets PO 1 hour before dental procedure 03/03 completed Not Available Not Available Not Available quinapril 40 mg tablet 04/19 completed Not Available Not Available Not Available tamsulosin 0.4 mg capsule 03/03 completed Not Available Not Available Not Available cephalexin 500 mg capsule 05/26 completed Not Available Not Available Not Available oseltamivir 75 mg capsule 07/24 completed Not Available Not Available Not Available omeprazole 20 mg capsule,del ayed release active Not Available Not Available Not Available diclofenac sodium 75 mg tablet,lizz yed release Take 1 tablet twice a day by oral route with meal(s). 03/03 completed Not Available Not Available Not Available lisinopril 40 mg tablet active Not Available Not Available Not Available cefdinir 300 mg capsule 03/04 completed Not Available Not Available Not Available finasteride 5 mg tablet active Not Available Not Available Not Available oxycodone 5 mg tablet 03/04 completed Not Available Not Available Not Available escitalopra m 10 mg tablet 07/24 completed Not Available Not Available Not Available bupropion HCl XL 300 mg 24 hr tablet, extended release Take 1 tablet every day by oral route. 05/26 completed Not Available Not Available Not Available bupropion HCl XL 150 mg 24 hr tablet, extended release 05/19 completed Not Available Not Available Not Available duloxetine 30 mg capsule,del ayed release active Not Available Not Available Not Available duloxetine 60 mg capsule,del ayed release 04/19 completed Not Available Not Available Not Available FiberCon 09/28 completed Not Available Not Available Not Available Eliquis 2.5 mg tablet 04/19 completed Not Available Not Available Not Available Trintellix 10 mg tablet 05/26 completed Not Available Not Available Not Available Vitals Date Recorded Body height Provider Name an d Address Organization Details Last Updated DateTime 03/21/2023 167.64 cm Cathie Patel [facility] [employer] [facility] [employer] [facility] 03/21/2023 14:29:46 Date Recorded Body height Provider Name an d Address Organization Details Last Updated DateTime 04/19/2023 167.64 cm Cathie Patel [facility] [employer] [facility] [employer] [facility] 04/19/2023 09:11:20 Date Recorded Body height Provider Name an d Address Organization Details Last Updated DateTime 05/13/2023 167.64 cm Cathie Patel [facility] [employer] [facility] [employer] [facility] 05/13/2023 15:44:25 Date Recorded Body height Provider Name an d Address Organization Details Last Updated DateTime 05/17/2023 167.64 cm Cathie Patel [facility] [employer] [facility] [employer] [facility] 05/17/2023 09:08:31 Date Recorded Body height Body mass index (BMI) Body weight Body temperature Oxygen saturation Oxygen saturation in Arterial blood by Pulse oximetry Systolic blood pressure Diastolic blood pressure Provider Name and Address Organization Details Last Updated DateTime 167.64 cm 46.8 kg/m2 022836. 79 g 98.2 [degF] 96 % 96 % 132 mm[Hg] 78 mm[Hg] Minda Avery MA [facility] [employer] [facility] 08:58:46 Date Recorded Heart rate Heart rate Respiratory rate Provider Name and Address Organization Details Last Updated DateTime 03/03/2024 86 /min 86 /min 14 /min Wesly Bauer MD [address] [place] [address], [address], [facility] [employer] 03/03/2024 09:02:14 Social History Question Answer Notes LastModified by Organizat ion Details LastModified Time Tobacco Smoking Status Never Smoker Minda Avery MA null, [facility] [employer] 10/17/2022 14:59:35 What Is Your Level Of Alcohol Consumption? None Information not available 10/17/2022 What Is Your Level Of Caffeine Consumption? Moderate Information not available 10/17/2022 In The 14 Days Before Symptom Onset, Have You Had Close Contact With A Laboratory-confirm ed COVID-19 While That Case Was Ill? No Information n ot available 10/17/2022 In The 14 Days Before Symptom Onset, Have You Had Close Contact With A Person Who Is Under Investigation For COVID-19 While That Person Was Ill? No Information not available 10/17/2022 Are You Currently Employed? Yes Information not available 10/17/2022 What Type Of Diet Are You Following? REGULAR Information n ot available 10/17/2022 Do You Have An Electrostatic Air Filter? 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 No Information not available 10/17/2022 Do You Have Moisture Problems In Your Home? No Information not available 10/17/2022 What Was The Date Of Your Most Recent Tobacco Screening? 03/03/2024 Information not available 03/03/2024 Do You Have Any Pets? Yes Information not available 10/17/2022 Do You Use Your Seat Belt Or Car Seat Routinely? Yes Information not available 10/17/2022 Do You Have Smoke And Carbon Monoxide Detectors In Your Home? Yes Information not available 10/17/2022 Are You Passively Exposed To Smoke? No Information no t available 10/17/2022 Do You Feel Stressed (tense, Restless, Nervous, Or Anxious, Or Unable To Sleep At Night)? [id number] Information not available 10/17/2022 Do You Use Any Illicit Or Recreational Drugs? No Information not available 10/17/2022 Do You Use Sunscreen Routinely? No Information not available 10/17/2022 Have You Recently Traveled Abroad? No Information not available 10/17/2022 Do You Have Any Dietary Restrictions? No Information not available 10/17/2022 Sex: Unknown Functional Status Question Answer Note LastModified by Organizat ion Details LastModified Time What is your exercise level? Occasional Information not available 10/17/2022 Mental Status None recorded. Family History Relationship Description Onset Age of this Age Resolved Age Notes LastModified by Organization Details LastModified Time Mother Drug abuse [email or web address] Not available 10/17/2022 15:28:35 Medical History No medical history recorded. Past Encounters Encounter ID Performer Location Encounter Start Date Encounter Closed Date Diagnosis/Indication Diagnosis SNOMED-CT Code Diagnosis ICD10 Code Diagnosis Note [id number] [facility] [address] [address] 09/29/2020 00:00:00 09/29/2020 15:57:28 [id number] [facility] [address] [address] 09/20/2021 00:00:00 09/20/2021 11:52:57 [id number] Wesly Bauer MD [facility] [address] [address] 10/17/2022 14:42:57 10/17/2022 15:48:30 Obstructive sleep apnea syndrome 32947841 G47.33 [id number] Rob Santana MD [facility] [address] [address] 11/29/2022 14:50:12 12/03/2022 10:21:31 Pain of left hip joint 4717577982 28882 M25.978 [id number] Rob Santana MD [facility] [address] [place] [address] 03/04/2023 15:45:16 03/11/2023 11:05:02 History of total replacement of left hip joint 4358827862 399448 Z96.048 [id number] ANNY Concepcion [facility] [address] [address] 03/21/2023 14:28:15 03/21/2023 15:44:45 History of total replacement of left hip joint 4248988888 462733 Z96.063 [id number] Rob Santana MD [facility] [address] [place] [address] 04/19/2023 08:58:05 05/06/2023 14:32:38 History of total replacement of left hip joint 1774638687 060267 Z96.642 Lumbar spondylosis 90556 0009 M47.899 [id number] Rob Santana MD [facility] [address] [place] [address] 05/13/2023 15:33:15 05/27/2023 10:52:07 Bilateral shoulder joint pain 0236038877 4579249 M25.511 M25.512 Pain of le ft shoulder joint 1132228633 4453413 M25.406 [id number] ANNY Concepcion [facility] [address] [place] [address] 05/17/2023 09:03:35 05/17/2023 09:28:23 History of total replacement of left hip joint 8073617256 804439 Z96.145 [id number] Wesly Bauer MD [facility] [address] [address] 03/03/2024 08:39:06 03/03/2024 16:37:39 Obstructive sleep apnea syndrome 07728881 G47.33 Health Concerns Section Related Observation LastModified by Organization Detai ls LastModified Time None Recorded Concern Status LastModified by Organization Details LastModified Time None Recorded Advance Directives Directive None Recorded Payers Encounter Date Sequence Insurance Name Policy Number Policy Parker Covered Member ID Parker Member ID Guarantor Name 03/21/2023 1 [employer] [id number] Pawel Hogan [id number] Pawel Hogan 04/19/2023 1 [place] [id number] Pawel Hogan [id number] Pawel Hogan 05/13/2023 1 [place] [id number] Pawel Hogan [id number] Pawel Hogan 05/17/2023 1 [facility] [id number] Pawel Hogan [id number] Pawel Hogan 03/03/2024 1 [facility] [id number] Pawel Hogan [id number] Pawel Hogan Notes Date Note Type Note Provider Name and Address Organization Details Recorded Time 04/19/2023 text/html Patient returns. He is now 2 months, 61 days after his left total hip arthroplasty on 02/20/2023. His hip is doing very well. He is not really having any discomfort in the left hip now. His chief complaint is mild lower back pain and cale-on-kxntosuu left buttock pain which I believe is coming from his back which he complained of before surgery. He has not resumed the meloxicam he was taking chronically for his back and hip. He does note persistence of numbness in the proximal anterolateral left thigh. Hopefully this will resolve over this year if it is due to stretch injury to 1 of the branches of lateral femoral circumflex nerve which is not uncommon. Rob Santana MD [address] [place] [address], [place], [address], [facility] 05/05/2023 20:05:56 05/13/2023 text/html Patient returns. He presents at this time for evaluation of his shoulders primary left shoulder. He has been taking meloxicam. We restarted this for his lower back pain. He does not feel there has been any change. Recently it has been more mild. I did talk to him about the option of trying diclofenac instead of meloxicam to see if this would help his lower back pain better and he wished to try that. He denies any liver disease kidney disease or peptic ulcer disease. He will have to stop the meloxicam before starting the diclofenac is given instructions he describing possible side effects of anti-inflammatory medication use. With respect to his left shoulder pain his chief complaint is anterior left shoulder pain that goes into the biceps muscle. Seem to be made worse when he was putting up some heavy Aj decorations boxes overhead in early April. He denies any numbness or tingling. Rob Santana MD [address] [facility], [address], [place], [address], [place] - [facility] 05/19/2023 19:31:03 03/03/2024 text/html Primary care/Ref erring provider: [facility], the patient uses a ResMed AirSense 10 autoset unit with heated humidification at 3. He does not need the ramp to start low and go up slowly on the pressure anymore. There is no xerostomia in a.m. There is no hose/mask condensation with water.Patient wears a Respironics small Dream Wear nasal mask without chin strap. There is no claustrophobia, no nostril/nose bridge irritation, no facial rash, no facial numbness, no nosebleeding.Patient feels more refreshed upon waking and daytime alertness is improved. Energy levels are sustained for the remainder of the day.Patient works from 9 pm to 5 am.Patient sleeps from 7 am to 3 pm and wakes up without an alarm.Snoring: heavy, since .Snorting: noChoking: yesCoughing: yesGasping: yesGagging: yesSighing: noWitnessed apnea: yesTwitching or jerking of leg(s), arm(s), body, head: noTeeth grinding: noTeeth clenching: noSleeptalking: yesSleepwalking: noSleep crying: noBedwetting: noTongue/lip/gum/cheek biting: noSleeping with open mouth: yesSleep paralysis: noHypnagogic hallucinations: noHypnopompic hallucinations: noVivid dreams: noDifficulty with sleep onset: yesDifficulty with sleep maintenance: yesSleep interruptions: nocturiaPatient wakes up with: fatigue, dexterity impairmentDaytime cataplexy: noMorning hypersomnolence: yesAfternoon hypersomnolence: yesCaffeine sources in diet: coffee 3.5 cups per day, tea 1/3 glass per day, chocolate 1/2 candy bar per week, energy drink 1/2 can Bang per weekAssociated medical and psychiatric conditions:Congestive heart failure: noCoronary artery disease: noMyocardial infarction: noHypertension: yesStroke: noBronchial asthma: noChronic obstructive pulmonary disease: noDepression: yesBipolar disorder: noAnxiety: noPanic disorder: noPosttraumatic stress disorder: noAttention deficit and hyperactivity disorder: noObsessive Compulsive disorder: noSchizophrenia: noSchizoaffective disorder: noPersonality disorder: noChronic analgesic use: noChronic sedative/hypnotic use: noEPWORTH SLEEPINESS SCALE (ESS)CHANCE OF DOZING SCORE0 = would never doze1 = slight chance of dozing2 = moderate chance of dozing3 = high chance of dozingSITUATION AND CHANCE OF DOZINGSitting and reading - 1Watching television - 1Sitting inactive in a public place (e.g. a theater or meeting) - 1As a passenger in a car for an hour without a break - 0Lying down to rest in the afternoon when circumstances permit - 3Sitting and talking to someone - 0Sitting quietly after lunch without alcohol - 1In a car, while stopped for a few minutes in the traffic - 0TOTAL SCORE 7Subjectively, patient has a slight chance of dozing. Wesyl Bauer MD [address] [place] [address], [address], [place] [facility] 03/03/2024 09:15:41
--- OUTSIDE RECORDS SUMMARY | 2024-05-29 13:58 | XMS_ITS | Continuity of Care Document ---
Author Organization [facility] Address [address] [place] [address] Phone Care Team Providers Care Program Support Clerk Name Role Phone Gayle OD, Jonathan Unavailable Unavailable Advance Directives Directive Yes / No Effective Date File Name No Information Encounters Encounter Description Practice Location Reason(s) For Visit Diagnoses Date Provider Providers Copied on Encounter [facility], [address], [place], [place], [id number], [place] tel:[phone] [address] [facility] No Information 8-200 4 Gayle OD Jonathan. [address] , [address], [place], [address], [place]. tel:[phone] Family History Family Member Type Diagnosis Age At Onset No Information Payers Payer name Insurance type Covered libertarian ID Authoriza tion(s) No Information Social History Type Description Quantity Date Captured Comments Sex Male Smoking Status No Information Chief Complaint And Reason For Visit No Information Reason For Referral Reason For Referral No Information History Of Present Illness Encounter Date Complaint History Of Prese nt Illness No Information Functional Status Date Functional Assessmen t No Information Instructions Date Instruction Additional Infor mation No Information Assessments Type Assessment Date No Information Patient Care Teams Name Effective Dates (start - stop) Status Members No Information
[2024-05-29 14:02] VITALS: O2SAT 96
--- NOTE | 2024-05-29 14:05 | PC.NURSE ---
Covid culture sent to lab
--- NOTE | 2024-05-29 14:15 | ED.URI ---
HPI - URI/Sore Throat General Chief Complaint: Upper Respiratory Infection Stated Complaint: congestion, cough Time Seen by Provider: 05/29/24 14:00 Source: patient Mode of arrival: ambulatory Limitations: no limitations Related Data Home Medications ?Medication ?Instructions ?Recorded ?Confirmed ?Last Taken ?Type calcium polycarbophil 625 mg 1,250 mg PO DAILY 02/24/19 04/22/24 02/14/23 History tablet (FiberCon) cyanocobalamin (vitamin B-12) 1,000 mcg PO DAILY 08/16/22 04/22/24 02/14/23 History 1,000 mcg tablet zinc 10 mg tablet 10 mg PO DAILY 01/28/23 04/22/24 02/14/23 History finasteride 5 mg tablet 5 mg PO DAILY 02/24/24 04/22/24 Unknown History Allergies Allergy/AdvReac Type Severity Reaction Status Date / Time No Known Allergies Allergy Verified 05/29/24 14:04 [facility] Past Medical History Medical History Right anterior knee pain Benign paroxysmal positional vertigo due to bilateral vestibular disorder Impacted cerumen of right ear Hearing loss associated with syndrome of right ear Tinnitus of right ear Arrhythmia (~09/2023) EKG 11/11/2023 with sinus rhythm with occasional PVC ,otherwise unchanged from previous EKG. Chronic low back pain with left-sided sciatica severe lumbar spondylosis on MRI of the spine on 02/09/2022. Chronic pain in right shoulder Chronic left shoulder pain Hip arthritis BPH without obstruction/lower urinary tract symptoms Obesity (BMI 30-39.9) Pre-operative clearance EKG 01/28/2023 with sinus rhythm with Q-wave AVF with possible inferior [place] but unchanged from EKG On 05/14/2015. UTI (urinary tract infection) Urinalysis and urine culture were completely normal 01/24/2023. Primary osteoarthritis of left hip Elevated PSA, less than 10 ng/ml (08/15/22) PSA elevated at 4.75 on 08/15/2022. PSA elevated at 5.0 with 12% free PSA on 02/05/2023. PSA 5.3 with 9% free PSA on 11/13/2023. Elevated ferritin (08/15/22) iron 80 with 25% saturation and ferritin elevated at 439 on 08/15/2022. Iron 79 with 25% saturation and ferritin elevated at 563 on 02/05/2023. Low TSH level (08/15/22) TSH slightly low at 0.25 on 08/15/2022. TSH normal at 0.62 with free T4 1.1 and T3 total at 160. Vitamin B12 deficiency (08/15/22) vitamin B12 low at 336 with goal greater than 400 with hemoglobin 15.7 and folic acid 15.5 on 08/15/2022. level normal at 1056 on 02/05/2023. Colon cancer screening Normal colonoscopy 11/07/2022 with diverticulosis with recheck in 10 years. Actinic keratosis (~2021) left external ear Hypertension Chronic left hip pain (~12/2021) Moderate to severe osteoarthritis of the left hip and mild arthritis of the right hip on x-rays 01/25/2022. Mixed hyperlipidemia (06/27/21) total cholesterol 165 with triglycerides elevated at 204 and HDL low at 31 with LDL 102 on 06/27/2021. Total cholesterol 133, triglycerides 144, HDL 30, LDL 79 on 01/16/2022. Cholesterol 149, HDL 30, triglycerides 132, LDL 96 on 08/15/2022. COVID-19 (02/11/21) tested positive on 02/13/2021 Microscopic hematuria urinalysis normal on 06/27/2021. Urinalysis normal on 08/15/2022. Urinalysis is normal on 01/24/2023. Dysuria Acute bilateral low back pain with left-sided sciatica (~09/06/20) X-ray on 12/13/2020 reveals mild levoscoliosis, moderate to severe degenerative disc disease from L3-S1 and moderate facet arthropathy throughout with moderate degenerative disc disease at L2-L3. Moderate to severe lumbar spondylosis on x-ray 01/25/2022.MRI of the lumbar spine on 02/09/2022 reveals severe lumbar spondylosis. Fatigue Dizziness Ganglion cyst of right foot Trigger thumb of left hand Dyspnea on exertion Encounter for prostate cancer screening PSA normal at 3.67 on 4 06/27/2021.PSA elevated at 4.75 on 08/15/2022. Obstructive sleep apnea on CPAP Gastro-esophageal reflux disease without esophagitis Elevated fasting glucose fasting glucose 94 and hemoglobin A1c 5.5 on 06/27/2021. fasting glucose 96 on 01/16/2022. Fasting glucose 95 with hemoglobin A1c 5.5 on 08/15/2022. Elevated liver enzymes AST 18 and ALT 31 on 06/27/2021. Liver enzymes normal on 08/15/2022 with GGT 15, AST 18, ALT 22. Seasonal allergic rhinitis Essential (primary) hypertension Chronic anxiety Chronic depression Surgical History Surgical History Hx of LASIK History of carpal tunnel release of both wrists Family History Family History Other Adopted Social History Social History Smoking status: Never smoker Additional smoking assessment comments: DENIES ANY FORM OF TOBACCO USE Alcohol intake: never Substance use: never Substance use type: does not use Current Housing: Decline to Answer Concerned About Future Housing: Decline to Answer Difficulty Paying Gas/Electric Bills: Decline to Answer Difficulty Paying for Meds: Decline to Answer Currently Unemployed: Decline to Answer Education: Decline to Answer Difficulty w/ Childcare or Family Care: No Living arrangements: with family Occupation/Education: occupation 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 Spiritual care concerns: No Course Vital Signs Vital signs: Vital Signs Temperature 36.6 C 05/29/24 13:57 Pulse Rate 92 05/29/24 13:57 Respiratory Rate 18 05/29/24 13:57 Blood Pressure 132/81 05/29/24 13:57 Pulse Oximetry 96 05/29/24 13:57 Oxygen Delivery Room Air 05/29/24 13:57 Temperature 36.6 C 05/29/24 13:57 Pulse Rate 92 05/29/24 13:57 Respiratory Rate 18 05/29/24 13:57 Blood Pressure 132/81 05/29/24 13:57 Pulse Oximetry 96 05/29/24 14:02 Oxygen Delivery Room Air 05/29/24 14:02 MDM - URI/Sore Throat MDM Narrative Medical decision making narrative: patient came with upper respiratory viral infection like symptoms been going for 1 month got worse lately with fever. Chest x-ray showed no acute abnormalities Patient tested positive for influenza A. Is not clear how long the patient been infected influenza a but probably within the last 2 days because how he was spiking fever yesterday. I will give him the benefit of doubt and discharge him on Tamiflu Differential Diagnosis Differential diagnosis: Likely upper respiratory infection, viral infection, bronchitis and influenza Medical Records Attestation: I reviewed the patient's medical records. Lab Data Attestation: I reviewed the patient's lab results. Labs: Lab Results 05/29/24 Range/Units 14:00 Influenza A (RT-PCR) Positive A (Negative) Influenza B (RT-PCR) Negative (Negative) RSV (RT-PCR) Negative (Negative) SARS-CoV-2 RNA (RT-PCR) Negative (Negative) Imaging Data Radiologist's impression: Impressions Chest X-Ray 05/29/24 14:45 IMPRESSION: 1. No acute cardiopulmonary disease. Critical Care Time Critical Care Time Critical Care Time: No Discharge Plan Discharge Clinical Impression: Influenza A Patient Disposition: Home, Self-Care Condition: Stable Instructions: Influenza (ED) Additional Instructions: Return if symptoms are worsening , call your family physician for appointment, take Tylenol , ibuprofen as as needed for aches and pain, continue home medications. Patient Language: Sinhala Prescriptions: New oseltamivir [Tamiflu] 75 mg capsule 75 mg PO BID Qty: 10 0RF No Action meloxicam 15 mg tablet 15 mg PO DAILY PRN (Reason: pain) Qty: 90 3RF finasteride 5 mg tablet 5 mg PO DAILY zinc 10 mg Tablet 10 mg PO DAILY calcium polycarbophil [FiberCon] 625 mg tablet 1,250 mg PO DAILY cyanocobalamin (vitamin B-12) 1,000 mcg tablet 1,000 mcg PO DAILY omeprazole 20 mg capsule,delayed release(DR/EC) 20 mg PO DAILY Qty: 90 3RF lisinopril 40 mg tablet 40 mg PO DAILY Qty: 90 3RF duloxetine 30 mg capsule,delayed release(DR/EC) 30 mg PO DAILY Qty: 90 3RF Follow-up/Referrals: UNKNOWN,DOCTOR [Primary Care Provider] -
--- OUTSIDE RECORDS SUMMARY | 2024-05-29 14:37 | XMS_ITS | Continuity of Care Document ---
Author Organization [facility] Address [address] [place] [address] Phone Care Team Providers Care Inpatient Auditor Name Role Phone Gayle OD, Jonathan Unavailable Unavailable Advance Directives Directive Yes / No Effective Date File Name No Information Encounters Encounter Description Practice Location Reason(s) For Visit Diagnoses Date Provider Providers Copied on Encounter [facility], [address], [place], [place], [id number], [place] tel:[phone] [address] [facility] No Information 8-200 4 Gayle OD Jonathan. [address] [facility] , [address], [place], [address], [place]. tel:[phone] Family History Family Member Type Diagnosis Age At Onset No Information Payers Payer name Insurance type Covered republican ID Authoriza tion(s) No Information Social History [...]
[2024-05-29 14:59] LABS: Influenza A QL RT-PCR Positive (Negative); Influenza B QL RT-PCR Negative (Negative); RSV RNA, RT-PCR Negative (Negative); SARS-CoV-2 RNA PCR Negative (Negative)
[2024-05-29 15:12] VITALS: BP 135/77; PULSE 81; RESP 20; TEMP 36.9; O2SAT 95
== END 2024-05-29 15:10 | disposition home or self-care (01) ==
PROVIDERS: Emergency Provider Emergency Medicine
DX: J10.1 Influenza due to other identified influenza virus with other respiratory manifestations (principal); I10 Essential (primary) hypertension; E78.2 Mixed hyperlipidemia; Z20.822 Contact with and (suspected) exposure to COVID-19
CPT/HCPCS: 71046; 87637; 99283